=== PATIENT | female | born 1990 | race Caucasian/White ===

== ENCOUNTER 2018-02-10 20:00 | Inpatient (IN) | payer BC, SELFPAY ==
[2018-02-10 20:45] LABS: Hemoglobin 14.4 g/dL (12.0-16.0); Mean Corpuscular HGB CONC 32.6 g/dL (32.0-36.0); Mean Corpuscular Hemoglobin 34.3 pg (27.0-31.0); Mean Platelet Volume 8.9 fL (7.4-10.4); Platelet Count 525 thou/uL (130-400); RBC Distribution Width 13.8 % (11.5-14.5); Red Blood Cell (RBC) Count 4.19 mill/uL (4.20-5.40); White Blood Cell (WBC) Count 17.7 thou/uL (4.8-10.8)
[2018-02-10 20:58] LABS: Band 2 % (5-11); Eosinophils 2 % (0-10); Lymphocytes 8 % (21-51); MDiff Complete? YES; Monocytes 9 % (0-10); Neutrophil 79 % (42-75); PLT Morphology Comment Appears Increased
[2018-02-10 21:00] LABS: ALT (SGPT) 184 U/L (8-55); AST (SGOT) 522 U/L (5-34); Albumin 4.2 g/dL (3.5-5.0); Alkaline Phosphatase 253 U/L (40-150); Anion Gap 18 mmol/L (10-20); BUN (Urea Nitrogen) 7 mg/dL (7.0-18.7); Bilirubin, Total 0.9 mg/dL (0.2-1.2); CRP (Inflammatory) 2.77 mg/dL (= or < 0.5); Calc. Creatinine Clearance 0 mL/min (70-130); Calcium 10.2 mg/dL (7.8-10.44); Carbon Dioxide 20 mmol/L (22-29); Chloride 103 mmol/L (98-107); Estimated GFR-MDRD Greater than 90; Globulin 4.5 g/dL (2.4-3.5); Glucose 99 mg/dL (70-105); Potassium 4.6 mmol/L (3.5-5.1); Protein, Total 8.7 g/dL (6.0-8.3); Sodium 136 mmol/L (136-145)
--- NOTE | 2018-02-10 21:31 | CT ---
CT BRAIN WITHOUT CONTRAST 02/10/18 HISTORY: Leg weakness. COMPARISON: None. FINDINGS: No hemorrhage. No infarct. No midline shift or mass effect. Ventricular size, extra-axial CSF spaces are normal. Globes are normal. Calvarium is intact. Paranasal sinuses and mastoids are clear. IMPRESSION: No acute intracranial abnormality. POS: [facility]
[2018-02-10] MEDS ORDERED: Lorazepam 2 MG/ML VIAL ONE (21:58)
--- NOTE | 2018-02-10 22:05 | ULT ---
ULTRASOUND GALLBLADDER RIGHT UPPER QUADRANT: 02/10/18 HISTORY: Elevated LFTs. COMPARISON: None. FINDINGS: Pancreas is not well seen. Abnormal increased hepatic echotexture. Liver is enlarged. Portal vein is patent. Antegrade flow. Gallbladder is normal. Common bile duct is normal. Right kidney is normal. IMPRESSION: Enlarged heterogeneous liver suggesting steatosis. POS: [facility]
[2018-02-10 22:43] LABS: Bilirubin Negative (Negative); Blood, Urine Small (Negative); Clarity CLEAR (Clear); Glucose, Urine (Dipstick) Negative (Negative); Leukocyte Large (Negative); Nitrite Negative (Negative); Protein, Urine (Dipstick) Negative (Neg-Trace); Specific Gravity, Urine 1.012 (1.002-1.036); pH, Urine 6.5 (5.0-9.0)
[2018-02-10 22:45] LABS: Bacteria/HPF None Seen HPF (None Seen); Hyaline Casts/LPF 4-6 HYALINE CAST LPF (0-3 Hyaline); Pathc Cast-AUWi Flag 0.43 (0-2.49); Squamous Epithelial 0-3 HPF (0-3); WBC/HPF 21-50 HPF (0-3)
[2018-02-10 22:49] LABS: Amphetamine Not Detected (NotDetected); Barbiturates Screen Not Detected (NotDetected); Benzodiazepine Screen Not Detected (NotDetected); Cocaine Metabolite Screen Not Detected (NotDetected); Medtox Control Line Valid? VALID (VALID); Medtox Reader # READER 4; Methadone Not Detected (NotDetected); Methamphetamine Not Detected (NotDetected); Opiate Screen Not Detected (NotDetected); Oxycodone Screen Not Detected (NotDetected); Phencyclidine (PCP) Not Detected (NotDetected); THC/Cannabinoid Screen Not Detected (NotDetected); Tricyclic Screen Not Detected (NotDetected)
[2018-02-11] LABS: HBCM Index 0.09 S/CO (0-0.79); HBSAg Index 0.15 S/CO (0-0.99); Hep A IgM AB Non-Reactive (NonReactive); Hep A IgM S/CO 0.13 S/CO (0-0.79); Hep B Surf Ag Non-Reactive S/CO (NonReactive); Hep C IgG Ab Non-Reactive (NonReactive); Hep C Index 0.14 S/CO (0-0.79); Hepatitis B Core IGM Abs Non-Reactive (NonReactive)
[2018-02-11 01:40] VITALS: BMI 31.8
[2018-02-11] MEDS ORDERED: Labetalol HCl 100 MG/20 ML VIAL SLOW IVP SCH (01:45)
[2018-02-11] MEDS ORDERED: Multivitamins, Adult 10 ML, Folic Acid 1 MG, Thiamine HCl 100 MG in Dextrose 5 %-0.45 %... IV SCH (03:00)
[2018-02-11 03:01] LABS: #Basophils 0.1 thou/uL (0.0-0.2); #Eosinphils 0.1 thou/uL (0.0-0.7); #Lymphocytes 1.9 thou/uL (1.20-3.40); #Monocytes 0.9 thou/uL (0.11-0.59); #Neutrophils 13.4 thou/uL (1.40-6.50); %Basophils 0.6 % (0.0-1.0); %Eosinophils 0.6 % (0.0-10.0); %Lymphocytes 11.6 % (21.0-51.0); %Monocytes 5.5 % (0.0-10.0); %Neutrophils 81.7 % (42.0-75.0); Hemoglobin 13.5 g/dL (12.0-16.0); Mean Corpuscular HGB CONC 33.1 g/dL (32.0-36.0); Mean Corpuscular Hemoglobin 35.3 pg (27.0-31.0); Mean Platelet Volume 8.9 fL (7.4-10.4); Platelet Count 486 thou/uL (130-400); Red Blood Cell (RBC) Count 3.81 mill/uL (4.20-5.40); White Blood Cell (WBC) Count 16.4 thou/uL (4.8-10.8)
[2018-02-11 03:42] LABS: ALT (SGPT) 153 U/L (8-55); AST (SGOT) 389 U/L (5-34); Alkaline Phosphatase 232 U/L (40-150); Anion Gap 15 mmol/L (10-20); BUN (Urea Nitrogen) 7 mg/dL (7.0-18.7); Bilirubin, Total 0.7 mg/dL (0.2-1.2); Calc. Creatinine Clearance 192 mL/min (70-130); Calcium 9.8 mg/dL (7.8-10.44); Carbon Dioxide 22 mmol/L (22-29); Chloride 104 mmol/L (98-107); Estimated GFR-MDRD Greater than 90; Globulin 3.6 g/dL (2.4-3.5); Glucose 102 mg/dL (70-105); Potassium 3.9 mmol/L (3.5-5.1); Protein, Total 7.6 g/dL (6.0-8.3); Sodium 137 mmol/L (136-145)
[2018-02-11] MEDS: Lorazepam 2 MG/ML VIAL SLOW IVP PRN ×3 (04:38→21:21)
[2018-02-11 05:03] LABS: Folate (Folic Acid) 10.7 ng/mL (7.0-31.4)
--- NOTE | 2018-02-11 05:38 | HP ---
PRIMARY CARE PHYSICIAN: None. PRESENTING COMPLAINT: "My lower legs are weak." HISTORY OF PRESENT ILLNESS: Ms. Judy Estrada is a 27-year-old female who has a past medical history of alcohol abuse and whose last drink was about a week ago, she presents to the emergency room with complaints of lower extremity weakness. The patient reports she had a stomach ache about 1 week ago and some weakness in her legs. She was seen by a physician and placed on some medications and sent home. She did not have any other symptoms then however, she reports that she has had more difficulty in walking and has had falls lately , associated with progressively weakening of her legs. She also reports numbness and tingling in both legs. There is no history of fevers or chills. She reports that her last drink was last Monday. She also said that she has had a very stressful few months and has been drinking "a lot" for the past couple of months. PAST MEDICAL HISTORY: Alcohol abuse. PAST SURGICAL HISTORY: Tonsillectomy, adenoidectomy. FAMILY HISTORY: Reviewed and noncontributory. SOCIAL HISTORY: She does not smoke cigarettes, but drinks alcohol regularly. CODE STATUS: FULL CODE. HOME MEDICATIONS: Ibuprofen 600 mg t.i.d. dicyclomine 10 mg t.i.d. ALLERGIES: No known drug allergies. REVIEW OF SYSTEMS: All systems reviewed and negative except as stated in HPI. PHYSICAL EXAMINATION: VITAL SIGNS: Blood pressure of patient is tachycardic, systolic blood pressures in the 160s. Other vital signs are within normal limits. She is afebrile and is breathing comfortably. GENERAL: Not in acute distress. She is lying comfortably in bed. HEENT: Normocephalic, atraumatic. Not pale, anicteric. Moist mucous membranes. PERRLA, EOMI. NECK: Supple, full range of movement. RESPIRATORY: Vesicular breath sounds bilaterally. No wheezes, rales or rhonchi. CARDIOVASCULAR: Tachycardic rate, regular rhythm. S1, S2 only. No murmurs, rubs or gallops. ABDOMEN: Soft, nontender, nondistended, no organomegaly. Bowel sounds normoactive. NEUROLOGIC: Alert and well oriented to time, place and person. Strength 5/5 in all extremities. Tone normal, ? hyperreflexia. MUSCULOSKELETAL: No edema. SKIN: Warm, dry, well-perfused. No rashes or lesions. PSYCHIATRIC: Normal mood and affect. LABORATORY DATA: Leukocytosis of 17,700 with hemoglobin normal, but high macrocytosis. Serum chemistry within normal limits except for ALT/ALT elevation with AST 522 and ALT 184, alkaline phosphatase 253. Urine toxicology was negative. Urinalysis showed large leukocyte esterase, increased wbc, but no bacteria. Hepatitis screening was negative. IMAGING: Brain CT showed no acute intracranial abnormalities. Abdominal ultrasound showed hepatic steatosis with enlarged heterogenous liver. ASSESSMENT AND PLAN: 1. Bilateral lower extremity weakness. Patient has a history of chronic alcohol abuse and this could be from vitamin B12 deficiency. However, there is concern for possible Guillain-[place] as she reports ascending weakness and has had a recent abdominal infection. CT abdomen negative in the emergency room. We will obtain vitamin B12/folate level, monitor on telemetry. MRI has also been ordered by ER physician. She would also require a CSF analysis and if GB, will need IVIG or plasma exchange. 2. Elevated blood pressure without diagnosis of hypertension: This could be due to early symptoms of alcohol withdrawal. We will place patient on banana bag daily, thiamine, and folate, as well as IV lorazepam p.r.n. for withdrawal symptoms. It is unlikely she has any infectious process going on. However, I will obtain cultures, especially since she has leukocytosis. 3. History of chronic alcohol abuse: Patient reports her last drink was a week ago. We will monitor closely for withdrawal symptoms in the hospital and relocation counselor on cessation. 4. Code status: FULL CODE. 5. Deep venous thrombosis prophylaxis: Unnecessary as the patient is young and has very, very little risk for DVTs. Neurology consult also please. MTDD
[2018-02-11] MEDS: Dicyclomine 10 MG CAP PO SCH ×3 (09:10→21:24)
[2018-02-11] MEDS: Folic Acid 1 MG TAB PO SCH (09:10)
[2018-02-11] MEDS ORDERED: Gadobenate Dimeglumine 529 MG/1 ML (20ML VIAL) ONE (09:50)
--- NOTE | 2018-02-11 10:37 | PDOC.PN ---
- Subjective Encounter Start Date: 02/11/18 (f/u weakness) Encounter Start Time: 10:35 Subjective: Pt denies any new sx, is concerned about need for LP - Dr Almaguer d/ w her -: denies any pain - Objective Vital Signs & Weight: Vital Signs (12 hours) Temp Pulse Resp BP BP Pulse Ox 02/11/18 08:09 98 F 98 16 173/110 H 97 02/11/18 07:45 98 F 98 16 02/11/18 04:00 98.8 F 95 17 95 02/11/18 01:58 102 H 176/108 H 02/11/18 01:10 99.3 F 102 H 18 176/108 H 100 Weight Weight 203 lb Result Diagrams: 02/11/18 02:54 02/11/18 02:54 EKG Reviewed by me: Yes (tele - sinus 90-100's) Phys Exam - Physical Examination Constitutional: NAD Respiratory: no wheezing, no rales, no rhonchi, clear to auscultation bilateral Cardiovascular: RRR, no significant murmur Gastrointestinal: soft, non-tender, no distention, positive bowel sounds Musculoskeletal: no edema deferred - slowed movement of LE with changing positions Psychiatric: normal affect Skin: no rash Dx/Plan (1) Weakness Code(s): R53.1 - WEAKNESS Status: Acute (2) UTI (urinary tract infection) Status: Acute (3) Leukocytosis Code(s): D72.829 - ELEVATED WHITE BLOOD CELL COUNT, UNSPECIFIED Status: Acute (4) HTN (hypertension) Code(s): I10 - ESSENTIAL (PRIMARY) HYPERTENSION Status: Chronic Qualifiers: Hypertension type: unspecified Qualified Code(s): I10 - Essential (primary ) hypertension (5) Elevated LFTs Code(s): R79.89 - OTHER SPECIFIED ABNORMAL FINDINGS OF BLOOD CHEMISTRY Status : Acute - Plan * Neuro consult - plan for LP, MRI and IVIG * * UTI - based on abnormal UA - add urine culture and start Rocephin. Pt denies urine sx, however has a leukocytosis and abnormal UA. * * Elevated bp's - uncertain if related to situation vs new dx of htn vs other undx process - follow and continue prn labetalol * * Elevated lft's - on a banana bag and improved today. Monitor this. US shows steatosis and enlarged liver. * * dvt prophy - lovenox added by Dr. Almaguer * * gi prophy - not indicated * * code status - full * * reviewed plan of care with patient and Mom, no questions or further needs at end of eval. *
[2018-02-11] MEDS: OCTAGAM 10% 60 GM, OCTAGAM 10% 10 GM, OCTAGAM 10% 5 GM in Admixture Fee 1 EACH IVPB SCH (11:57)
--- NOTE | 2018-02-11 11:57 | MRI ---
PRE AND POST CONTRAST ENHANCED MRI IMAGES BRAIN: HISTORY: Weakness, evaluate for Guillain-[place]. FINDINGS: Pre- and [id number] MRI images of brain obtained. No evidence of intracranial masses, hemorrhages, strokes, or contusions seen. No abnormal areas of i ntracranial enhancement seen. There does appear to be some minimal subtle increased signal on the T1 weighted sequences suggesting some possible enhancement involving the course of the right facial nerve. There may be some minimal component in the intracannicula portion as well as the horizontal and descending portions of the righ t facial nerve. IMPRESSION: Possible minimal right facial nerve enhancement. Otherwise, unremarkable noncontrast-enhanced MRI im ages of the brain. POS: [facility]
[2018-02-11] MEDS: cefTRIAXone\\ROCEPHIN 1 GM in Sodium Chloride 0.9% 100 ML IVPB SCH (12:00)
[2018-02-11] MEDS: Acetaminophen 325 MG TAB PO PRN (13:53)
--- NOTE | 2018-02-11 15:13 | CON ---
DATE OF CONSULTATION: 02/11/2018 CONSULTING PHYSICIAN: Hospitalist Service. 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 PLAN: 1. Lumbar puncture for spinal fluid analysis. 2. IVIG 1 gram per kilogram for 3 days. 3. Deep venous thrombosis prophylaxis. 4. Bedside spirometry for negative inspiratory flow measurements. HISTORY OF PRESENT ILLNESS: Ms. Kim is a 27-year-old white female with no significant past histor y. Last week, she had some abdominal pain. This was followed by the development of some tingling in her hands and feet. She started noticing progressive weakness in both of her legs, has gotten very difficult to walk. She came into the emergency room last night for evaluation. Her CT scan of the b rain was unremarkable. Laboratory studies were notable for elevated liver enzymes with a negative he patitis panel. She also had an elevated C-reactive protein. Her symptoms began 6 days ago and have reportedly worsened on a gradual basis. EKG showed a heart rate of 92 in sinus rhythm. PAST MEDICAL HISTORY: Otherwise, negative. ALLERGIES: None reported. SOCIAL HISTORY: No tobacco or illicit drug use. FAMILY HISTORY: Noncontributory. REVIEW OF SYSTEMS: No difficulty with facial numbness, difficulty swallowing, double vision, headach e, confusion or vision loss. PHYSICAL EXAMINATION: GENERAL: She is a somewhat overweight young woman, lying in bed, in no acute distress. VITAL SIGNS: Pulse 92, respirations 20. HEENT: Pupils equal and reactive. Conjunctivae clear. Oropharynx clear. NECK: Supple. No pain with movement. EXTREMITIES: No cyanosis, clubbing or edema. NEUROLOGIC: She is alert and appropriate. Her speech is fluent and clear. Cranial nerves were inta ct. Motor exam showed 4/5 strength involving deltoids and biceps, tricep seen normal. Finger flexio n was 4-/5, hip flexion was 4-, ankle flexion was 4-. Reflexes were absent. Sensation was intact to touch. Gait was not tested. No abnormal movements were seen. SUMMARY: This is a young woman with ascending weakness of the extremities along with paresthesias. Her clinical picture is consistent with an acute neuropathy. We would go ahead and proceed with a sp inal tap and treatment. She may transfer to rehabilitation after her treatment depending on the sign ificance of her weakness.
[2018-02-11] MEDS: Labetalol HCl 100 MG/20 ML VIAL SLOW IVP PRN (21:41)
[2018-02-12] MEDS: Lorazepam 2 MG/ML VIAL SLOW IVP PRN ×2 (02:43→08:54)
[2018-02-12 04:27] LABS: #Basophils 0.1 thou/uL (0.0-0.2); #Eosinphils 0.2 thou/uL (0.0-0.7); #Lymphocytes 1.6 thou/uL (1.20-3.40); #Neutrophils 10.7 thou/uL (1.40-6.50); %Basophils 0.5 % (0.0-1.0); %Eosinophils 1.3 % (0.0-10.0); %Lymphocytes 11.5 % (21.0-51.0); %Monocytes 7.3 % (0.0-10.0); %Neutrophils 79.4 % (42.0-75.0); Hemoglobin 13.7 g/dL (12.0-16.0); Mean Corpuscular HGB CONC 33.3 g/dL (32.0-36.0); Mean Corpuscular Hemoglobin 35.2 pg (27.0-31.0); Mean Platelet Volume 9.2 fL (7.4-10.4); Platelet Count 447 thou/uL (130-400); RBC Distribution Width 13.9 % (11.5-14.5); White Blood Cell (WBC) Count 13.5 thou/uL (4.8-10.8)
[2018-02-12 04:36] LABS: ALT (SGPT) 135 U/L (8-55); AST (SGOT) 329 U/L (5-34); Albumin 3.7 g/dL (3.5-5.0); Alkaline Phosphatase 223 U/L (40-150); Anion Gap 15 mmol/L (10-20); BUN (Urea Nitrogen) 4 mg/dL (7.0-18.7); Bilirubin, Total 0.6 mg/dL (0.2-1.2); Calc. Creatinine Clearance 192 mL/min (70-130); Calcium 9.7 mg/dL (7.8-10.44); Carbon Dioxide 21 mmol/L (22-29); Chloride 102 mmol/L (98-107); Estimated GFR-MDRD Greater than 90; Globulin 5.6 g/dL (2.4-3.5); Glucose 94 mg/dL (70-105); Protein, Total 9.3 g/dL (6.0-8.3); Sodium 134 mmol/L (136-145)
[2018-02-12] MEDS: Dicyclomine 10 MG CAP PO SCH ×3 (08:58→20:35)
[2018-02-12] MEDS ORDERED: Enoxaparin Sodium 30 MG/0.3 ML SYRINGE SC SCH (09:00)
--- NOTE | 2018-02-12 10:15 | PDOC.PN ---
- Subjective Encounter Start Date: 02/12/18 Encounter Start Time: 10:13 Patient seen after admission for ascending lower extremity paresis w concerns for Gullian [place] Syndrome. MRI obtained and LP scheduled for today. Has been started on Octagam. - Objective MAR Reviewed: Yes Vital Signs & Weight: Vital Signs (12 hours) Temp Pulse Resp BP BP Pulse Ox 02/12/18 07:32 98.5 F 109 H 16 163/111 H 96 02/12/18 02:45 98.3 F 120 H 18 158/108 H 158/108 H 98 02/12/18 00:00 164/108 H 02/11/18 23:00 98.3 F 86 18 164/108 H 98 Weight Weight 203 lb I&O: 02/11/18 02/12/18 02/13/18 06:59 06:59 06:59 Intake Total 3220 Output Total 4200 Balance -980 Result Diagrams: 02/12/18 03:59 02/12/18 03:59 Phys Exam - Physical Examination Constitutional: NAD HEENT: PERRLA, moist MMs, oral pharynx no lesions Neck: supple, full ROM Respiratory: no wheezing, no rales, no rhonchi, clear to auscultation bilateral Cardiovascular: RRR, no significant murmur, no rub Gastrointestinal: soft, non-tender, no distention, positive bowel sounds Musculoskeletal: no edema, pulses present Psychiatric: normal affect, A&O x 3 Skin: no rash, normal turgor Dx/Plan (1) Weakness Code(s): R53.1 - WEAKNESS Status: Acute Comment: likely 2/2 Gullian BArre. MRI, CT brain done. LP results pending. has been started on IVIG. (2) Alcohol abuse Code(s): F10.10 - ALCOHOL ABUSE, UNCOMPLICATED Status: Chronic (3) Elevated LFTs Code(s): R79.89 - OTHER SPECIFIED ABNORMAL FINDINGS OF BLOOD CHEMISTRY Status : Acute (4) UTI (urinary tract infection) Status: Acute Qualifiers: Urinary tract infection type: acute cystitis Hematuria presence: without hematuria Qualified Code(s): N30.00 - Acute cystitis without hematuria (5) HTN (hypertension) Code(s): I10 - ESSENTIAL (PRIMARY) HYPERTENSION Status: Chronic Qualifiers: Hypertension type: unspecified Qualified Code(s): I10 - Essential (primary ) hypertension - Plan cont current plan of care, plan discussed w/ family, PT/OT, psychiatric social worker supervisor, incentive spirometry, out of bed/ambulate, DVT proph w/lovenox LP scheduled for today. Continue IV Octagam. Will need rehab placement once she has completed treatment. Review of Systems - Medications/Allergies Allergies/Adverse Reactions: Allergies Allergy/AdvReac Type Severity Reaction Status Date / Time No Known Drug Allergies Allergy Verified 02/11/18 01:35 Medications: Current Medications Acetaminophen (Tylenol) 650 mg PO Q4H PRN PRN Reason: Headache/Fever or Pain Last Admin: 02/11/18 13:53 Dose: 650 mg Dicyclomine HCl (Bentyl) 10 mg PO TID [facility] Last Admin: 02/12/18 08:58 Dose: Not Given Enoxaparin Sodium (Lovenox) 30 mg SC 2100 [facility] Folic Acid (Folvite) 1 mg PO DAILY [facility] Last Admin: 02/11/18 09:10 Dose: 1 mg Immune Globulin 60 gm/ Immune Globulin 10 gm/ Immune Globulin 5 gm/ Miscellaneous Medication 750 mls @ 0 mls/hr IVPB Q24HR [facility]UL[facility] PRN Reason: As Directed Stop: 02/13/18 12:01 Last Admin: 02/11/18 11:57 Dose: 750 mls Ceftriaxone Sodium 1 gm/ (Sodium Chloride) 100 mls @ 200 mls/hr IVPB Q24HR [facility] Last Admin: 02/11/18 12:00 Dose: 100 mls Labetalol HCl (Normodyne) 10 mg SLOW IVP Q4H PRN PRN Reason: SBP Greater Than 180 Last Admin: 02/11/18 21:41 Dose: 2 ml Lorazepam (Ativan) 1 mg SLOW IVP Q4H PRN PRN Reason: Anxiety/Agitation Last Admin: 02/12/18 08:54 Dose: 1 mg Sodium Chloride (Flush - Normal Saline) 10 ml IVF Q12HR [facility] Last Admin: 02/11/18 21:23 Dose: 10 ml Sodium Chloride (Flush - Normal Saline) 10 ml IVF PRN PRN PRN Reason: Saline Flush Thiamine HCl (Thiamine) 100 mg PO DAILY [facility] Last Admin: 02/11/18 09:10 Dose: 100 mg
[2018-02-12 10:22] LABS: CSF Source CSF; CSF, Glucose 60 mg/dl (40-70); CSF, Protein 38 mg/dL (15-40); Clarity Clear (Clear); RBC Count - Manual 0 /cumm (None Seen); Tube # 4; WBC/NonHematics Count - Manual 0 /cumm (0-5)
[2018-02-12] MEDS ORDERED: Amlodipine 5 MG TAB PO SCH (10:30)
[2018-02-12] MEDS: Folic Acid 1 MG TAB PO SCH (10:44)
[2018-02-12] MEDS: cefTRIAXone\\ROCEPHIN 1 GM in Sodium Chloride 0.9% 100 ML IVPB SCH (10:47)
--- NOTE | 2018-02-12 11:51 | RAD ---
LUMBAR PUNCTURE WITH FLUOROSCOPIC GUIDANCE: Date: 02-12-18 History: Bilateral lower extremity weakness, possible Guillain [place]. FINDINGS: Informed consent was obtained prior to the procedure. [employer] frontal and lateral imaging of the lumbar spine demonstrates five lumbar type vertebral bodies with intact pedicles on frontal imaging. Verteb ral body height and alignment appears within normal limits. The patient was placed on the fluoroscopic table in the oblique prone position and skin overlying the lower lumbar spine was prepped and draped in normal sterile fashion. With intermittent fluoroscopic guidance, a 22 gauge spinal needle was advanced into the thecal sac at the L3-4 level and removal of the stylet yields clear cerebrospinal fluid. Approximately 8-9 cc was obtained and sent to the laboratory for assessment. Opening pressure is approximately 12 cm of water. IMPRESSION: Successful lumbar puncture as described above. POS: [facility]
[2018-02-12] MEDS: OCTAGAM 10% 60 GM, OCTAGAM 10% 10 GM, OCTAGAM 10% 5 GM in Admixture Fee 1 EACH IVPB SCH (12:51)
[2018-02-12] MEDS: Acetaminophen 325 MG TAB PO PRN (13:14)
[2018-02-12] MEDS ORDERED: cloNIDine 0.1 MG TAB PO SCH (13:45)
[2018-02-12] MEDS ORDERED: Sodium Chloride 0.9% 1,000 ML IV SCH (14:30)
[2018-02-12] MEDS: Enoxaparin Sodium 30 MG/0.3 ML SYRINGE SC SCH (20:34)
[2018-02-12] MEDS: cloNIDine 0.1 MG TAB PO SCH (20:34)
[2018-02-13 08:12] LABS: Hemoglobin 13.2 g/dL (12.0-16.0); Mean Corpuscular HGB CONC 33.6 g/dL (32.0-36.0); Mean Corpuscular Hemoglobin 35.4 pg (27.0-31.0); Mean Platelet Volume 9.1 fL (7.4-10.4); Platelet Count 466 thou/uL (130-400); RBC Distribution Width 13.8 % (11.5-14.5); Red Blood Cell (RBC) Count 3.74 mill/uL (4.20-5.40); White Blood Cell (WBC) Count 8.9 thou/uL (4.8-10.8)
[2018-02-13] MEDS: cloNIDine 0.1 MG TAB PO SCH ×2 (08:15→21:23)
[2018-02-13] MEDS: Dicyclomine 10 MG CAP PO SCH ×3 (08:16→21:51)
[2018-02-13] MEDS: Amlodipine 5 MG TAB PO SCH (08:17)
[2018-02-13] MEDS: Folic Acid 1 MG TAB PO SCH (08:18)
[2018-02-13] MEDS: Lorazepam 2 MG/ML VIAL SLOW IVP PRN ×3 (08:21→23:52)
[2018-02-13 08:41] LABS: Band 22 % (5-11); Eosinophils 3 % (0-10); Lymphocytes 4 % (21-51); MDiff Complete? YES; Macrocytosis SLIGHT = 6-15 cells (100X) (0-5/hpf); Monocytes 13 % (0-10); Neutrophil 53 % (42-75); PLT Morphology Comment Appears Increased; Polychromasia SLIGHT = 2-3 cells (100X) (0-2/hpf); Reactive Lymphocytes 2 % (0-10); Rouleaux Formation SLIGHT = 1-5 cells (100X) (None Seen); Stomatocytes MODERATE= 6-15 cells (100X) (0-1/hpf)
--- NOTE | 2018-02-13 09:01 | PDOC.PN ---
- Subjective Encounter Start Date: 02/13/18 Encounter Start Time: 09:05 patient seen and examined. Admitted for bilateral progressing lower extremity weakness, withhigh suspicion for Gullian [place]. Doing better now with physical therapy and no signs of progressing disease. Incentive spirometer by bedside. No acute events overnight. No complaints. - Objective Vital Signs & Weight: Vital Signs (12 hours) Temp Pulse Resp BP BP BP Pulse Ox 02/13/18 07:41 99.2 F 106 H 18 142/101 H 96 02/13/18 04:09 144/98 H 02/13/18 04:00 99.7 F H 110 H 16 144/98 H 96 02/13/18 00:00 97.4 F L 115 H 18 169/96 H 169/96 H 95 02/12/18 21:58 116 H 166/99 H Weight Weight 203 lb I&O: 02/12/18 02/13/18 02/14/18 06:59 06:59 06:59 Intake Total 3220 Output Total 4200 Balance -980 Result Diagrams: 02/13/18 07:52 02/12/18 03:59 Phys Exam - Physical Examination Constitutional: NAD HEENT: moist MMs, sclera anicteric, oral pharynx no lesions Neck: supple, full ROM Respiratory: no wheezing, no rales, no rhonchi, clear to auscultation bilateral Cardiovascular: RRR, no significant murmur, no rub Gastrointestinal: soft, non-tender, no distention, positive bowel sounds Musculoskeletal: no edema, pulses present Neurological: non-focal Psychiatric: normal affect, A&O x 3 Skin: no rash, normal turgor Dx/Plan (1) Weakness Code(s): R53.1 - WEAKNESS Status: Acute Comment: High suspicion for Gullian [place]. MRI, CT brain done. LP did not have elevated protein.as been started on IVIG. (2) Alcohol abuse Code(s): F10.10 - ALCOHOL ABUSE, UNCOMPLICATED Status: Chronic (3) Elevated LFTs Code(s): R79.89 - OTHER SPECIFIED ABNORMAL FINDINGS OF BLOOD CHEMISTRY Status : Chronic (4) UTI (urinary tract infection) Status: Acute Qualifiers: Urinary tract infection type: acute cystitis Hematuria presence: without hematuria Qualified Code(s): N30.00 - Acute cystitis without hematuria (5) HTN (hypertension) Code(s): I10 - ESSENTIAL (PRIMARY) HYPERTENSION Status: Chronic Qualifiers: Hypertension type: unspecified Qualified Code(s): I10 - Essential (primary ) hypertension - Plan cont current plan of care, plan discussed w/ family, PT/OT, director social service, out of bed/ambulate Continue IVIG Continue PT/OT Home w physical therapy after completing IVIG treatment. Review of Systems - Medications/Allergies Allergies/Adverse Reactions: Allergies Allergy/AdvReac Type Severity Reaction Status Date / Time No Known Drug Allergies Allergy Verified 02/11/18 01:35 Medications: Current Medications Acetaminophen (Tylenol) 650 mg PO Q4H PRN PRN Reason: Headache/Fever or Pain Last Admin: 02/12/18 13:14 Dose: 650 mg Amlodipine Besylate (Norvasc) 5 mg PO DAILY [facility] Last Admin: 02/13/18 08:17 Dose: 5 mg Clonidine (Catapres) 0.1 mg PO BID [facility] Last Admin: 02/13/18 08:15 Dose: 0.1 mg Dicyclomine HCl (Bentyl) 10 mg PO TID [facility] Last Admin: 02/13/18 08:16 Dose: Not Given Enoxaparin Sodium (Lovenox) 30 mg SC 2100 [facility] Last Admin: 02/12/18 20:34 Dose: 30 mg Folic Acid (Folvite) 1 mg PO DAILY [facility] Last Admin: 02/13/18 08:18 Dose: 1 mg Immune Globulin 60 gm/ Immune Globulin 10 gm/ Immune Globulin 5 gm/ Miscellaneous Medication 750 mls @ 0 mls/hr IVPB Q24HR [facility] PRN Reason: As Directed Stop: 02/13/18 12:01 Last Admin: 02/12/18 12:51 Dose: 750 mls Ceftriaxone Sodium 1 gm/ (Sodium Chloride) 100 mls @ 200 mls/hr IVPB Q24HR [facility] Last Admin: 02/12/18 10:47 Dose: 100 mls Labetalol HCl (Normodyne) 10 mg SLOW IVP Q4H PRN PRN Reason: SBP Greater Than 180 Last Admin: 02/11/18 21:41 Dose: 2 ml Lorazepam (Ativan) 1 mg SLOW IVP Q4H PRN PRN Reason: Anxiety/Agitation Last Admin: 02/13/18 08:21 Dose: 1 mg Morphine Sulfate (Morphine) 2 mg SLOW IVP Q4H PRN PRN Reason: Severe Pain (7-10) Last Admin: 02/13/18 07:06 Dose: 2 mg Sodium Chloride (Flush - Normal Saline) 10 ml IVF Q12HR [facility] Last Admin: 02/13/18 08:19 Dose: 10 ml Sodium Chloride (Flush - Normal Saline) 10 ml IVF PRN PRN PRN Reason: Saline Flush Thiamine HCl (Thiamine) 100 mg PO DAILY [facility] Last Admin: 02/13/18 08:17 Dose: 100 mg
[2018-02-13] MEDS: cefTRIAXone\\ROCEPHIN 1 GM in Sodium Chloride 0.9% 100 ML IVPB SCH (10:29)
[2018-02-13 10:37] LABS: Hemoglobin A1c 5.5 % (4.0-6.0)
[2018-02-13] MEDS: OCTAGAM 10% 60 GM, OCTAGAM 10% 10 GM, OCTAGAM 10% 5 GM in Admixture Fee 1 EACH IVPB SCH (14:06)
[2018-02-13] MEDS: Labetalol HCl 100 MG/20 ML VIAL SLOW IVP PRN (18:01)
[2018-02-13] MEDS: Enoxaparin Sodium 30 MG/0.3 ML SYRINGE SC SCH (21:24)
[2018-02-14] MEDS: Lorazepam 2 MG/ML VIAL SLOW IVP PRN ×2 (05:31→23:57)
[2018-02-14 05:52] LABS: Hemoglobin 13.1 g/dL (12.0-16.0); Mean Corpuscular HGB CONC 32.5 g/dL (32.0-36.0); Mean Corpuscular Hemoglobin 34.4 pg (27.0-31.0); Mean Platelet Volume 9.3 fL (7.4-10.4); Platelet Count 456 thou/uL (130-400); RBC Distribution Width 13.9 % (11.5-14.5); White Blood Cell (WBC) Count 7.7 thou/uL (4.8-10.8)
[2018-02-14 06:07] LABS: Anion Gap 12 mmol/L (10-20); BUN (Urea Nitrogen) 6 mg/dL (7.0-18.7); Calc. Creatinine Clearance 185 mL/min (70-130); Calcium 9.9 mg/dL (7.8-10.44); Carbon Dioxide 22 mmol/L (22-29); Chloride 100 mmol/L (98-107); Estimated GFR-MDRD Greater than 90; Glucose 95 mg/dL (70-105); Potassium 4.3 mmol/L (3.5-5.1); Sodium 130 mmol/L (136-145)
[2018-02-14] MEDS ORDERED: Metoprolol Tartrate 25 MG TAB PO SCH ×4 (09:00→21:00)
[2018-02-14] MEDS: Amlodipine 5 MG TAB PO SCH (09:36)
[2018-02-14] MEDS: Dicyclomine 10 MG CAP PO SCH ×3 (09:37→21:51)
[2018-02-14] MEDS: Folic Acid 1 MG TAB PO SCH (09:37)
[2018-02-14] MEDS: cefTRIAXone\\ROCEPHIN 1 GM in Sodium Chloride 0.9% 100 ML IVPB SCH (09:41)
[2018-02-14] MEDS: Acetaminophen 325 MG TAB PO PRN ×2 (09:41→16:10)
[2018-02-14] MEDS ORDERED: Amlodipine 5 MG TAB PO SCH ×2 (10:21→10:30)
--- NOTE | 2018-02-14 10:21 | PDOC.PN ---
- Subjective Encounter Start Date: 02/14/18 Encounter Start Time: 10:23 Patient seen and examined for lower extremity weakness likely 2/2 Gullian [place] Syndrome. Doing much better after IVIG and physical therapy. No complaints today. No acute events overnight. - Objective MAR Reviewed: Yes Vital Signs & Weight: Vital Signs (12 hours) Temp Pulse Resp BP BP BP Pulse Ox 02/14/18 09:36 170/113 H 02/14/18 08:00 100.2 F H 112 H 17 170/113 H 95 02/14/18 04:09 153/104 H 02/14/18 04:00 99.0 F 108 H 18 153/104 H 94 L 02/14/18 00:09 138/91 H 02/14/18 00:00 98.3 F 108 H 18 138/91 H 94 L Weight Weight 200 lb 12.8 oz I&O: 02/13/18 02/14/18 02/15/18 06:59 06:59 06:59 Intake Total 1527 Balance 1527 Result Diagrams: 02/14/18 05:24 02/14/18 05:24 Phys Exam - Physical Examination Constitutional: NAD HEENT: moist MMs, TM's clear, oral pharynx no lesions Neck: supple, full ROM Respiratory: no wheezing, no rales, no rhonchi, clear to auscultation bilateral Cardiovascular: no significant murmur, no rub tachycardic Gastrointestinal: soft, non-tender, no distention, positive bowel sounds Musculoskeletal: no edema, pulses present Neurological: non-focal, moves all 4 limbs Psychiatric: normal affect, A&O x 3 Dx/Plan (1) HTN (hypertension) Code(s): I10 - ESSENTIAL (PRIMARY) HYPERTENSION Status: Chronic Qualifiers: Hypertension type: essential hypertension Qualified Code(s): I10 - Essential (primary) hypertension Comment: Not at goal. TTE ordered. (2) Weakness Code(s): R53.1 - WEAKNESS Status: Acute Comment: Improving. Likely 2/2 Gullian [place]. MRI, CT brain done. LP did not have elevated protein. Completed IVIG. (3) Alcohol abuse Code(s): F10.10 - ALCOHOL ABUSE, UNCOMPLICATED Status: Chronic (4) Elevated LFTs Code(s): R79.89 - OTHER SPECIFIED ABNORMAL FINDINGS OF BLOOD CHEMISTRY Status : Chronic (5) UTI (urinary tract infection) Status: Acute Qualifiers: Urinary tract infection type: acute cystitis Hematuria presence: without hematuria Qualified Code(s): N30.00 - Acute cystitis without hematuria - Plan cont current plan of care, plan discussed w/ family, continue antibiotics, PT/OT , bilingual social worker, DVT proph w/lovenox f/u TTE, TSH. Continue physical therapy education and development manager working on rehabilitation placement. Review of Systems - Medications/Allergies Allergies/Adverse Reactions: Allergies Allergy/AdvReac Type Severity Reaction Status Date / Time No Known Drug Allergies Allergy Verified 02/11/18 01:35 Medications: Current Medications Acetaminophen (Tylenol) 650 mg PO Q4H PRN PRN Reason: Headache/Fever or Pain Last Admin: 02/14/18 09:41 Dose: 650 mg Amlodipine Besylate (Norvasc) 5 mg PO DAILY [facility] Last Admin: 02/14/18 09:36 Dose: 5 mg Dicyclomine HCl (Bentyl) 10 mg PO TID [facility] Last Admin: 02/14/18 09:37 Dose: 10 mg Enoxaparin Sodium (Lovenox) 30 mg SC 2100 [facility] Last Admin: 02/13/18 21:24 Dose: 30 mg Folic Acid (Folvite) 1 mg PO DAILY [facility] Last Admin: 02/14/18 09:37 Dose: 1 mg Ceftriaxone Sodium 1 gm/ (Sodium Chloride) 100 mls @ 200 mls/hr IVPB Q24HR [facility] Last Admin: 02/14/18 09:41 Dose: 100 mls Labetalol HCl (Normodyne) 10 mg SLOW IVP Q4H PRN PRN Reason: SBP Greater Than 180 Last Admin: 02/13/18 18:01 Dose: 2 ml Lorazepam (Ativan) 1 mg SLOW IVP Q4H PRN PRN Reason: Anxiety/Agitation Last Admin: 02/14/18 05:31 Dose: 1 mg Metoprolol Tartrate (Lopressor) 12.5 mg PO BID [facility] Last Admin: 02/14/18 09:36 Dose: 12.5 mg Morphine Sulfate (Morphine) 2 mg SLOW IVP Q4H PRN PRN Reason: Severe Pain (7-10) Last Admin: 02/13/18 21:24 Dose: 2 mg Sodium Chloride (Flush - Normal Saline) 10 ml IVF Q12HR [facility] Last Admin: 02/14/18 09:37 Dose: 10 ml Sodium Chloride (Flush - Normal Saline) 10 ml IVF PRN PRN PRN Reason: Saline Flush Thiamine HCl (Thiamine) 100 mg PO DAILY [facility] Last Admin: 02/14/18 09:36 Dose: 100 mg
[2018-02-14] MEDS: Enoxaparin Sodium 30 MG/0.3 ML SYRINGE SC SCH (21:50)
[2018-02-15] MEDS: Lorazepam 2 MG/ML VIAL SLOW IVP PRN (06:22)
[2018-02-15] MEDS ORDERED: Metoprolol Tartrate 25 MG TAB PO SCH (06:42)
[2018-02-15] MEDS: Acetaminophen 325 MG TAB PO PRN (08:06)
[2018-02-15] MEDS ORDERED: Metoprolol Tartrate 50 MG TAB PO SCH (09:00)
[2018-02-15] MEDS ORDERED: Amlodipine 10 MG TAB PO SCH (09:00)
[2018-02-15] MEDS: Dicyclomine 10 MG CAP PO SCH (10:03)
[2018-02-15] MEDS: cefTRIAXone\\ROCEPHIN 1 GM in Sodium Chloride 0.9% 100 ML IVPB SCH (10:03)
[2018-02-15] MEDS: Folic Acid 1 MG TAB PO SCH (10:03)
[2018-02-15 13:45] VITALS: BP 140/100; TEMP 99.2
--- NOTE | 2018-02-15 14:58 | DIS ---
DATE OF ADMISSION: 02/11/2018 DATE OF DISCHARGE: 02/15/2018 DISCHARGE DIAGNOSES: Guillain-[place], hypertension, alcohol abuse. HISTORY OF PRESENT ILLNESS/HOSPITAL COURSE: Ms. Sean Kim is a 27-year-old female who has a hi story of chronic alcohol abuse and reported last drink to be about a week before presentation, who ca me to the emergency room with complaints of progressively worsening lower extremity weakness. She dutton d a stomach discomfort about a week before and was diagnosed with a GI illness. She was seen by her physician and started on some antibiotics and sent home; however, she soon after started having numbn ess in her extremities and began ascending. She found it difficult for walk and [facility]. There was no history of fevers or chills. There are no s ick contacts. She reports drinking a lot in the past few months, and takes multiple shots duri ng the course of the night. A suspicion of Guillain-[place] was made as a diagnosis and the patient dutton d a CT head which was negative. She was seen by neurologist who quickly recommended MRI and a lumbar puncture which were both unremarkable and the patient was started on IVIG. She received 3 doses of IVIG. She had an incentive spirometer placed at bedside and she was monitored on telemetry. She beg an physical therapy and improved while in the hospital. Recommendation was made for the patient to eliot hernandez to undergo outpatient physical therapy while in hospital as well. Her blood pressure was mar kedly elevated to the 180 systolic and she was also tachycardic. She was placed on alcohol withdrawa l protocol, but even after the window passed, she continued to be hypertensive and so she was started on amlodipine and metoprolol. TTE done showed no remarkable abnormalities. The patient is discharg ed to home with PT and OT. She was stable and well upon discharge. DISCHARGE MEDICATIONS: Amlodipine 10 mg daily, folic acid 1 mg daily, metoprolol 50 mg twice a day, thiamine 100 mg daily, gabapentin 300 mg twice a day, dicyclomine 10 mg 3 times a day, ibuprofen 200 mg 3 times a day. PHYSICAL EXAMINATION: GENERAL: She was examined on the day of discharge. VITAL SIGNS: Blood pressure 158/108, pulse rate 109, respiratory rate 16, oxygen saturation 97% on r oom air, temperature 99.3 degrees Fahrenheit. GENERAL: Not in acute distress. She is sitting comfortably in bed. HEENT: Normocephalic, atraumatic. Not pale, anicteric. Moist mucous membranes. NECK: Supple, full range of movement. CARDIOVASCULAR: Slightly tachycardic, regular rate and rhythm. No murmurs, rubs or gallops. RESPIRATORY: Vesicular breath sounds bilaterally. No wheezes, rales or rhonchi. ABDOMEN: Soft, nontender, nondistended. Bowel sounds normoactive. EXTREMITIES: No edema. NEUROLOGIC: Alert and well oriented. No focal deficits. SKIN: Warm, dry, well-perfused. No rashes or lesions. PSYCHIATRIC: Normal mood and affect. LABORATORY DATA: WBC 7.7, hemoglobin 13.1, platelet count 456. Sodium 130, potassium 4.3, chloride 100, carbon dioxide 22, BUN 12, creatinine 0.6, glucose 95, calcium 9.9, hemoglobin A1c 5.5. TSH 1.9 4. IMAGING: TTE, MRI brain and brain CT. PROCEDURES: Lumbar puncture with fluoroscopy. CONSULTS: Neurology. CONDITION AT DISCHARGE: Stable and improved. DIET: Low sodium. Care goals to follow up with her primary care within 1 week for blood pressure check and repeat labs. ACTIVITY: To resume as tolerated and directed by PT/OT. Discharge time 65 minutes including chart review and documentation.
== END 2018-02-15 12:41 | disposition home health service (06) | DRG 95 ==
LOC: ERS 20:00 → OBSVTOIN 02-11 00:21 → 2NO 02-11 00:21
PROVIDERS: ADMIT Internal Medicine; ATTEND Internal Medicine
PROC: 00JU3ZZ Inspection of Spinal Canal, Percutaneous Approach (ICD-10-PCS; principal; 2018-02-12)
DX: G61.0 Guillain-Barre syndrome (principal); N39.0 Urinary tract infection, site not specified; Z79.1 Long term (current) use of non-steroidal anti-inflammatories (NSAID); Z79.899 Other long term (current) drug therapy; I10 Essential (primary) hypertension; F10.10 Alcohol abuse, uncomplicated
CPT/HCPCS: 36415; 62270; 70450; 70553; 76705; 80048; 80053; 80074; 80306; 81003; 81015; 82607; 82746; 82945; 83036; 84157; 84443; 85025; 85027; 85652; 86140; 87040; 87086; 87205; 89051; 93306; 96361; 96374; A4216; A9579; G8978-GP-CM; G8979-GP-CK; G8987-GO-CJ; G8988-GO-CH; J0696; J1568; J1650; J2060; J2270; J3411; J7042; J7050

== ENCOUNTER 2018-04-18 10:13 | Outpatient (CLI) | payer OTHER ==
--- NOTE | 2018-04-18 11:52 | ULT ---
RIGHT UPPER QUADRANT ULTRASOUND: DATE: 04/18/18. COMPARISON: None. HISTORY: Elevated liver function tests. TECHNIQUE: Multiplanar, esqueda scale, sonographic imaging of the right upper quadrant obtained. FINDINGS: Imaged pancreas is unremarkable. Distal body and tail are obscured by bowel gas. The hepatic parenchyma is heterogeneous and echogenic, suggesting hepatocellular disease, such as hep atic steatosis. The fire control assistant reports a negative Ballesteros's sign. No gallbladder wall thickening or pericholecystic fluid noted. No gallstones are seen. The common b ile duct measures 3 mm, within normal limits. The right kidney measures 12 cm in craniocaudal dimens ion and demonstrates no evidence for stone, hydronephrosis, or mass. IMPRESSION: Findings suggesting hepatic steatosis. No cholelithiasis, cholecystitis, or biliary dilatation. POS: FRAN
== END 2018-04-18 10:14 | disposition home or self-care (01) ==
LOC: SCSULT 10:13
PROVIDERS: ATTEND Family Medicine
DX: R94.5 Abnormal results of liver function studies (principal)
CPT/HCPCS: 76705

== ENCOUNTER 2020-07-01 17:47 | Inpatient (IN) | payer OTHER ==
[2020-07-01 18:30] LABS: Bacteria/HPF 1+ HPF (None Seen); Bilirubin Negative (Negative); Blood, Urine 3+ (Negative); Clarity Turbid (Clear); Glucose, Urine (Dipstick) Normal (Negative); Ketone, Urine Negative (Negative); Leukocyte 500 Leu/uL (Negative); Nitrite Negative (Negative); Pregnancy Test - Urine (BHCG) Negative (Negative); Pregu Control Background? CLEAR/WHITE (CLR/WHITE); Pregu Control Bar Appear? YES (CONTROL BAR); Protein, Urine (Dipstick) Negative (Neg-Trace); RBC/HPF 0-3 HPF (0-3); Specific Gravity 1.003 (1.002-1.036); Specific Gravity, Urine 1.003 (1.002-1.036); Squamous Epithelial 0-3 HPF (0-3); Urobilinogen Normal mg/dL (Less than 2); pH, Urine 6.5 (5.0-9.0)
[2020-07-01 18:41] LABS: Hemoglobin 12.6 g/dL (12.0-16.0); Red Blood Cell (RBC) Count 3.25 mill/uL (4.20-5.40); White Blood Cell (WBC) Count 13.4 thou/uL (4.8-10.8)
[2020-07-01 18:42] LABS: Platelet Count 423 thou/uL (130-400); RBC Distribution Width 14.4 % (11.5-14.5)
[2020-07-01 19:05] LABS: #Basophils 0.1 thou/uL (0.0-0.2); #Eosinphils 0.1 thou/uL (0.0-0.7); #Lymphocytes 3.1 thou/uL (1.20-3.40); #Monocytes 0.5 thou/uL (0.11-0.59); #Neutrophils 9.6 thou/uL (1.40-6.50); %Basophils 0.8 % (0.0-1.0); %Eosinophils 0.5 % (0.0-10.0); %Lymphocytes 22.9 % (21.0-51.0); %Monocytes 3.9 % (0.0-10.0); %Neutrophils 71.9 % (42.0-75.0); Mean Corpuscular HGB CONC 33.3 g/dL (32.0-36.0); Mean Corpuscular Hemoglobin 38.9 pg (27.0-31.0)
[2020-07-01 19:07] LABS: MDiff Complete? YES; Macrocytosis SLIGHT = 6-15 cells (100X) (0-5/hpf); Platelet Morphology Comment Appears Increased; Polychromasia SLIGHT = 2-3 cells (100X) (0-2/hpf); Target Cells MODERATE= 6-15 cells (100X) (0-1/hpf)
[2020-07-01 21:23] LABS: ALT (SGPT) 87 U/L (8-55); AST (SGOT) 310 U/L (5-34); Albumin 3.8 g/dL (3.5-5.0); Alkaline Phosphatase 198 U/L (40-110); Anion Gap 18 mmol/L (10-20); BUN (Urea Nitrogen) Less than 4 mg/dL (7.0-18.7); Bilirubin, Total 0.8 mg/dL (0.2-1.2); Calc. Creatinine Clearance 0 mL/min (70-130); Calcium 8.9 mg/dL (7.8-10.44); Carbon Dioxide 25 mmol/L (22-29); Chloride 99 mmol/L (98-107); Estimated GFR-MDRD Greater than 90; Globulin 3.6 g/dL (2.4-3.5); Glucose 89 mg/dL (70-105); Potassium 3.6 mmol/L (3.5-5.1); Protein, Total 7.4 g/dL (6.0-8.3); Sodium 138 mmol/L (136-145)
[2020-07-01] MEDS ORDERED: Ondansetron PF 4 MG/2 ML Vial ONE (21:33)
[2020-07-01] MEDS ORDERED: Fentanyl 100 MCG/2 ML VIAL ONE ×2 (21:33→23:54)
[2020-07-01] MEDS ORDERED: methylPREDNISolone Sod Succ 1,000 MG in Sodium Chloride 0.9% 100 ML IVPB SCH (21:45)
[2020-07-01] MEDS ORDERED: Midazolam HCl 2 mg/2 ml Vial ONE (22:01)
[2020-07-01] MEDS ORDERED: cefTRIAXone\\ROCEPHIN 1 GM VIAL ONE (22:01)
[2020-07-01 23:08] LABS: Color Of CSF Supernatant COLORLESS (Colorless); Tube # 2; Unspun CSF Color COLORLESS (Colorless)
[2020-07-01 23:22] LABS: CSF, Glucose 59 mg/dl (40-70); CSF, Protein 30 mg/dL (15-40)
[2020-07-01 23:39] LABS: CSF Source CSF; Clarity Clear (Clear); Tube # 1; Tube # 4
[2020-07-02] MEDS ORDERED: Acetaminophen 325 MG TAB PO PRN (01:02)
[2020-07-02] MEDS ORDERED: Calcium Carbonate 500 MG ChewTAB PO PRN (01:02)
[2020-07-02] MEDS ORDERED: Ondansetron PF 4 MG/2 ML Vial IVP PRN (01:02)
[2020-07-02] MEDS ORDERED: Ondansetron ODT 4 MG TAB PO PRN (01:02)
[2020-07-02] MEDS ORDERED: Acetaminophen 650 MG Suppository PR PRN (01:02)
[2020-07-02] MEDS ORDERED: HYDROcodone/Acetaminophen 5/325 mg Tablet PO PRN (01:02)
--- NOTE | 2020-07-02 01:15 | PDOC.HHP ---
Hospitalist HPI - History of Present Illness parestesia of the legs History of Present Illness: Case of an 30y/o female with pmhx of htn and a hx of guillan barre who presents to hospital with several days of n/t and weakness of lower extremities. States symptoms are similar to when she was diagnosed with Guillian-[place] in 2018. patient refers pains is 8/10 with an ascending pattern and is associated with numbness. reports recently started with pain on her hands bilaterally. denies any fever chills back pain or loss of bowel control. Her neurologist is Dr Almaguer, but was unable to contact him today. ED called neurologist on called who recommended 1g of solumedrol and 0,4mg/kg of ivig Hospitalist ROS - Review of Systems All other systems reviewed; all pertinent +/- noted in HPI/Subj Hospitalist History - Past Surgical History Past Surgical History: reports: Tonsillectomy - Family History Family History: reports: diabetes mellitus Other Family History: epilepsy - Social History Smoking Status: Never smoker Alcohol: reports: Heavy Drugs: reports: none Living Situation: With Family - Exam General Appearance: NAD, awake alert Eye: PERRL, anicteric sclera ENT: normocephalic atraumatic, no oropharyngeal lesions Neck: supple, symmetric, no JVD Heart: RRR, no murmur, no gallops Respiratory: CTAB, no wheezes, no rales, no ronchi Gastrointestinal: soft, non-tender, non-distended Extremities: no cyanosis, no clubbing, no edema Skin: normal turgor, no lesions, no rashes Neurological: cranial nerve grossly intact Musculoskeletal: normal tone Musculoskeletal - other findings: b/l le weakness and decreased reflexes Psychiatric: normal affect, normal behavior, A&O x 3 Hospitalist Results - Labs Result Diagrams: 07/01/20 18:28 07/01/20 20:42 Lab results: WBC 13.4 thou/uL (4.8-10.8) H 07/01/20 18:28 Hgb 12.6 g/dL (12.0-16.0) 07/01/20 18:28 Hct 38.0 % (36.0-47.0) 07/01/20 18:28 MCV 117.0 fL (78.0-98.0) H 07/01/20 18:28 Plt Count 423 thou/uL (130-400) H 07/01/20 18:28 Neutrophils % 71.9 % (42.0-75.0) 07/01/20 18:28 Sodium 138 mmol/L (136-145) 07/01/20 20:42 Potassium 3.6 mmol/L (3.5-5.1) 07/01/20 20:42 Chloride 99 mmol/L (98-107) 07/01/20 20:42 Carbon Dioxide 25 mmol/L (22-29) 07/01/20 20:42 BUN Less than 4 mg/dL (7.0-18.7) L 07/01/20 20:42 Creatinine 0.60 mg/dL (0.6-1.1) 07/01/20 20:42 Glucose 89 mg/dL (70-105) 07/01/20 20:42 Calcium 8.9 mg/dL (7.8-10.44) 07/01/20 20:42 Total Bilirubin 0.8 mg/dL (0.2-1.2) 07/01/20 20:42 AST 310 U/L (5-34) H 07/01/20 20:42 ALT 87 U/L (8-55) H 07/01/20 20:42 Alkaline Phosphatase 198 U/L (40-110) H 07/01/20 20:42 Serum Total Protein 7.4 g/dL (6.0-8.3) 07/01/20 20:42 Albumin 3.8 g/dL (3.5-5.0) 07/01/20 20:42 Urine Ketones Negative mg/dL (Negative) 07/01/20 18:12 Urine Blood 3+ (Negative) A 07/01/20 18:12 Urine Nitrite Negative (Negative) 07/01/20 18:12 Ur Leukocyte Esterase 500 Amber/uL (Negative) A 07/01/20 18:12 Urine RBC 0-3 HPF (0-3) 07/01/20 18:12 Urine WBC 11-20 HPF (0-3) A 07/01/20 18:12 Ur Squamous Epith Cells 0-3 HPF (0-3) 07/01/20 18:12 Urine Bacteria 1+ HPF (None Seen) A 07/01/20 18:12 Hospitalist H&P A/P - Problem (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 Status: Acute (2) UTI (urinary tract infection) Status: Acute Qualifiers: Urinary tract infection type: acute cystitis Hematuria presence: without hematuria Qualified Code(s): N30.00 - Acute cystitis without hematuria (3) Alcohol abuse Code(s): F10.10 - ALCOHOL ABUSE, UNCOMPLICATED Status: Chronic (4) HTN (hypertension) Code(s): I10 - ESSENTIAL (PRIMARY) HYPERTENSION Status: Chronic Qualifiers: Hypertension type: essential hypertension Qualified Code(s): I10 - Essential (primary) hypertension - Plan Plan: case of an 30y/o female with the stated pmxh who present with 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
[2020-07-02 01:23] VITALS: BMI 31.3
[2020-07-02] MEDS ORDERED: Diazepam 5 MG TAB PO PRN (02:32)
[2020-07-02] MEDS ORDERED: Thiamine HCl 200 MG/2 ML VIAL IM SCH (02:45)
[2020-07-02] MEDS ORDERED: Diazepam 5 MG TAB PO SCH (02:45)
[2020-07-02] MEDS ORDERED: HYDROcodone/Acetaminophen 5/325 mg Tablet ONE ×2 (04:03→10:06)
[2020-07-02] MEDS: OCTAGAM IVPB SCH (04:04)
[2020-07-02] MEDS: ADMIXTURE FEE IVPB SCH (04:04)
[2020-07-02] MEDS ORDERED: Diazepam 5 MG TAB ONE (05:31)
[2020-07-02] MEDS: HYDROcodone/Acetaminophen 5/325 mg Tablet PO PRN ×2 (05:57→13:55)
[2020-07-02] MEDS ORDERED: Morphine 4 MG/ML VIAL ONE (06:44)
[2020-07-02] MEDS: Morphine 4 MG/ML VIAL SLOW IVP PRN ×3 (06:47→20:37)
[2020-07-02 06:58] LABS: ALT (SGPT) 82 U/L (8-55); AST (SGOT) 263 U/L (5-34); Albumin 3.4 g/dL (3.5-5.0); Alkaline Phosphatase 187 U/L (40-110); Anion Gap 16 mmol/L (10-20); BUN (Urea Nitrogen) 4 mg/dL (7.0-18.7); Bilirubin, Total 1.1 mg/dL (0.2-1.2); Calc. Creatinine Clearance 171 mL/min (70-130); Calcium 8.6 mg/dL (7.8-10.44); Carbon Dioxide 23 mmol/L (22-29); Chloride 101 mmol/L (98-107); Estimated GFR-MDRD Greater than 90; Globulin 4.2 g/dL (2.4-3.5); Glucose 187 mg/dL (70-105); Potassium 3.8 mmol/L (3.5-5.1); Protein, Total 7.6 g/dL (6.0-8.3); Sodium 136 mmol/L (136-145)
[2020-07-02 07:52] LABS: Band 6 % (5-11); Hemoglobin 11.1 g/dL (12.0-16.0); Lymphocytes 3 % (21-51); MDiff Complete? YES; Macrocytosis MODERATE=16-30 cells (100X) (0-5/hpf); Mean Corpuscular HGB CONC 33.9 g/dL (32.0-36.0); Mean Corpuscular Hemoglobin 39.5 pg (27.0-31.0); Mean Platelet Volume 8.2 fL (7.4-10.4); Monocytes 1 % (0-10); Neutrophil 90 % (42-75); Platelet Count 341 thou/uL (130-400); Platelet Morphology Comment Appears Adequate; RBC Distribution Width 14.5 % (11.5-14.5); Red Blood Cell (RBC) Count 2.81 mill/uL (4.20-5.40); White Blood Cell (WBC) Count 6.3 thou/uL (4.8-10.8)
[2020-07-02] MEDS: Pregabalin 50 MG CAP PO SCH ×3 (08:06→20:39)
[2020-07-02] MEDS ORDERED: Enoxaparin Sodium 40 MG/0.4 ML SYRINGE ONE (09:09)
[2020-07-02] MEDS ORDERED: Amlodipine 5 MG TAB ONE (09:09)
[2020-07-02] MEDS ORDERED: Folic Acid 1 MG TAB ONE (09:09)
[2020-07-02] MEDS ORDERED: Thiamine 100 MG TAB ONE (09:09)
[2020-07-02] MEDS ORDERED: Metoprolol Tartrate 25 MG TAB ONE (09:09)
[2020-07-02] MEDS: Amlodipine 10 MG TAB PO SCH (09:26)
[2020-07-02] MEDS: Metoprolol Tartrate 25 MG TAB PO SCH ×2 (09:28→20:39)
[2020-07-02] MEDS: Folic Acid 1 MG TAB PO SCH (09:28)
[2020-07-02] MEDS: Multivitamin W/ Minerals 1 TAB PO SCH (09:56)
[2020-07-02] MEDS: Enoxaparin Sodium 40 MG/0.4 ML SYRINGE SC SCH (09:57)
[2020-07-02 10:25] LABS: Magnesium 1.5 mg/dL (1.6-2.6); Phosphorus 3.4 mg/dL (2.3-4.7)
[2020-07-02] MEDS ORDERED: Magnesium Sulfate 4 GM in Sodium Chloride 0.9% 250 ML 250 ML IVPB SCH (12:15)
[2020-07-02] MEDS ORDERED: Magnesium 2 GM/50 ML 2 GM in Premix Bag 1 BAG IVPB SCH (12:45)
[2020-07-02 13:00] LABS: SARS-CoV-2 MS2 Positive; SARS-CoV-2 N Gene Negative; SARS-CoV-2 S Gene Negative; SARS-CoV-2 by NAA Not Detected (NotDetected); SARS-CoV-2 orf1ab Negative
--- NOTE | 2020-07-02 14:10 | CON ---
NEUROLOGICAL CONSULTATION DATE OF CONSULTATION: 07/02/2020 REASON FOR CONSULTATION: Ascending paresthesias. HISTORY OF PRESENT ILLNESS: Ms. Judy Estrada is a 30-year-old female with medical history significant for hypertension and Guillain-[place] syndrome in 2018, who is a patient of Dr. Almaguer, presenting with weakness of the lower extremities upto the knees with ascending paresthesias since monday with difficulty walking. Per patient, she had very painful paresthesias in her lower extremities and her legs feel heavy so she was unable to walk properly. The patient denies any shortness of breath, urinary or fecal incontinence or retention. She does complain of tingling and paresthesias in both her hands.. The patient's symptoms are similar when she was diagnosed with Guillain-[place] syndrome in 2018. She denies, fevers, back pain, nausea, vomiting, diarrhea, recent illness or recent exposure to COVID. The patient denies any problem with breathing or swallowing. She was seen in the emergency room where the lumbar puncture was done and she was also started on IVIG 0.4 mg for 4 days. REVIEW OF SYSTEMS: All systems were reviewed and were negative except the pertinent positives and negatives mentioned in the HPI. PAST SURGICAL HISTORY: Tonsillectomy. FAMILY HISTORY: Significant for diabetes and epilepsy. SOCIAL HISTORY: The patient lives with family. Denies smoking, alcohol, or illegal drug use. Allergies: No known drug allergies Home medications: Gabapentin PHYSICAL EXAMINATION: 130/60 88 18 General Appearance: NAD, awake alert Eye: PERRL, anicteric sclera ENT: normocephalic atraumatic, no oropharyngeal lesions Neck: supple, symmetric, no JVD Heart: RRR, no murmur, no gallops Respiratory: CTAB, no wheezes, no rales, no ronchi Gastrointestinal: soft, non-tender, non-distended Extremities: no cyanosis, no clubbing, no edema Skin: normal turgor, no lesions, no rashes Neurological: Mental status, the patient is alert and oriented to person, place, and time. Recent and remote memory, intact. Speech is clear. Motor, muscle tone and bulk are normal. Sensory, decreased sensation to light touch in the lower extremity. In the lower extremity, strength 4/5 bilaterally. Cerebellar, finger-nose testing intact. Gait deferred due to the patient's safety reason. DATA REVIEWED: Significant for hypoglycemia with blood glucose 89. Lab results: WBC 13.4 thou/uL (4.8-10.8) H 07/01/20 18:28 Hgb 12.6 g/dL (12.0-16.0) 07/01/20 18:28 Hct 38.0 % (36.0-47.0) 07/01/20 18: MCV 117.0 fL (78.0-98.0) H 07/01/20 18:28 Plt Count 423 thou/uL (130-400) H 07/01/20 18:28 Neutrophils % 71.9 % (42.0-75.0) 07/01/20 18:28 Sodium 138 mmol/L (136-145) 07/01/20 20:42 Potassium 3.6 mmol/L (3.5-5.1) 07/01/20 20:42 Chloride 99 mmol/L (98-107) 07/01/20 20:42 Carbon Dioxide 25 mmol/L (22-29) 07/01/20 20:42 BUN Less than 4 mg/dL (7.0-18.7) L 07/01/20 20:42 Creatinine 0.60 mg/dL (0.6-1.1) 07/01/20 20:42 Glucose 89 mg/dL (70-105) 07/01/20 20:42 Calcium 8.9 mg/dL (7.8-10.44) 07/01/20 20:42 Total Bilirubin 0.8 mg/dL (0.2-1.2) 07/01/20 20:42 AST 310 U/L (5-34) H 07/01/20 20:42 ALT 87 U/L (8-55) H 07/01/20 20:42 Alkaline Phosphatase 198 U/L (40-110) H 07/01/20 20:42 Serum Total Protein 7.4 g/dL (6.0-8.3) 07/01/20 20:42 Albumin 3.8 g/dL (3.5-5.0) 07/01/20 20:42 Urine Ketones Negative mg/dL (Negative) 07/01/20 18:12 Urine Blood 3+ (Negative) A 07/01/20 18:12 Urine Nitrite Negative (Negative) 07/01/20 18:12 Ur Leukocyte Esterase 500 Amber/uL (Negative) A 07/01/20 18:12 Urine RBC 0-3 HPF (0-3) 07/01/20 18:12 Urine WBC 11-20 HPF (0-3) A 07/01/20 18:12 Ur Squamous Epith Cells 0-3 HPF (0-3) 07/01/20 18:12 Urine Bacteria 1+ HPF (None Seen) A 07/01/20 18:12 ASSESSMENT AND PLAN: (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 Status: Acute (2) UTI (urinary tract infection) Status: Acute Qualifiers: Urinary tract infection type: acute cystitis Hematuria presence: without hematuria Qualified Code(s): N30.00 - Acute cystitis without hematuria (3) Alcohol abuse Code(s): F10.10 - ALCOHOL ABUSE, UNCOMPLICATED Status: Chronic (4) HTN (hypertension) Code(s): I10 - ESSENTIAL (PRIMARY) HYPERTENSION Status: Chronic Qualifiers: Hypertension type: essential hypertension Qualified Code(s): I10 - Essential (primary) hypertension Ms. Judy Estrada is a 30-year-old female with history significant for Guillain-[place] syndrome, alcohol abuse, hypertension, urinary tract infection, presented with an exacerbation of Guillain-[place] syndrome. Continue IVIG 0.4 g/kg for 3 days. . DVT prophylaxis. CIWA protocol. Bedside spirometry for negative inspiratory flow per shift. Neurochecks every 2 checks. PT/OT/Speech. Continue Lyrica 100 mg p.o. twice daily for painful paresthesias. Patient takes gabapentin at home which according to her does not work well for with neuropathic pain. Continue medical management per primary team. Plan discussed in detail with the patient, nursing staff and the primary attending Dr. Garber. Thank you for the consult. Job ID: [id number] [facility] HOSPITALOliver
[2020-07-02] MEDS: Multivitamins, Adult 10 ML, Folic Acid 1 MG, Thiamine HCl 100 MG in Dextrose 5 %-0.45 %... IV SCH (15:54)
[2020-07-02] MEDS ORDERED: Lorazepam 1 MG TAB PO PRN (17:15)
[2020-07-02] MEDS ORDERED: cloNIDine 0.1 MG TAB PO PRN (17:47)
[2020-07-02] MEDS ORDERED: Famotidine 20 MG TAB PO SCH (21:00)
[2020-07-02] MEDS: cefTRIAXone\\ROCEPHIN 1 GM in Sodium Chloride 0.9% 100 ML IVPB SCH (21:58)
[2020-07-02] MEDS: Zolpidem Tartrate 5 MG TAB PO PRN (22:03)
[2020-07-03] MEDS: Morphine 4 MG/ML VIAL SLOW IVP PRN ×3 (01:20→15:54)
[2020-07-03 03:33] LABS: #Lymphocytes 1.2 thou/uL (1.20-3.40); #Monocytes 0.8 thou/uL (0.11-0.59); %Basophils 0.1 % (0.0-1.0); %Eosinophils 0.1 % (0.0-10.0); %Lymphocytes 7.7 % (21.0-51.0); %Monocytes 5.2 % (0.0-10.0); %Neutrophils 86.9 % (42.0-75.0); Hemoglobin 10.6 g/dL (12.0-16.0); Mean Corpuscular HGB CONC 32.8 g/dL (32.0-36.0); Mean Corpuscular Hemoglobin 39.2 pg (27.0-31.0); Mean Platelet Volume 8.2 fL (7.4-10.4); Platelet Count 378 thou/uL (130-400); RBC Distribution Width 14.7 % (11.5-14.5); Red Blood Cell (RBC) Count 2.71 mill/uL (4.20-5.40); White Blood Cell (WBC) Count 16.2 thou/uL (4.8-10.8)
[2020-07-03] MEDS: ADMIXTURE FEE IVPB SCH (03:39)
[2020-07-03] MEDS: OCTAGAM IVPB SCH (03:39)
[2020-07-03 03:52] LABS: ALT (SGPT) 61 U/L (8-55); AST (SGOT) 116 U/L (5-34); Albumin 3.4 g/dL (3.5-5.0); Alkaline Phosphatase 165 U/L (40-110); Anion Gap 16 mmol/L (10-20); BUN (Urea Nitrogen) 7 mg/dL (7.0-18.7); Bilirubin, Total 0.7 mg/dL (0.2-1.2); CK (CPK) 35 U/L (29-168); Calc. Creatinine Clearance 200 mL/min (70-130); Calcium 8.8 mg/dL (7.8-10.44); Carbon Dioxide 20 mmol/L (22-29); Chloride 104 mmol/L (98-107); Estimated GFR-MDRD Greater than 90; Glucose 163 mg/dL (70-105); Lipase Less than 4 U/L (8-78); Magnesium 2.1 mg/dL (1.6-2.6); Phosphorus 3.5 mg/dL (2.3-4.7); Protein, Total 7.4 g/dL (6.0-8.3); Sodium 136 mmol/L (136-145)
[2020-07-03] MEDS ORDERED: Diazepam 5 MG TAB PO PRN (04:00)
[2020-07-03] MEDS ORDERED: Cyanocobalamin 1000 MCG/ML VIAL IM SCH (08:45)
[2020-07-03] MEDS: Folic Acid 1 MG TAB PO SCH (09:29)
[2020-07-03] MEDS: Amlodipine 10 MG TAB PO SCH (09:30)
[2020-07-03] MEDS: Cyanocobalamin (Vitamin B-12) 1,000 MCG TAB PO SCH (09:30)
[2020-07-03] MEDS: Multivitamin W/ Minerals 1 TAB PO SCH (09:30)
[2020-07-03] MEDS: Thiamine 100 MG TAB PO SCH (09:30)
[2020-07-03] MEDS: Metoprolol Tartrate 25 MG TAB PO SCH ×2 (09:30→20:18)
[2020-07-03] MEDS: Enoxaparin Sodium 40 MG/0.4 ML SYRINGE SC SCH (09:30)
[2020-07-03] MEDS: Magnesium Oxide 400 MG TAB PO SCH (09:30)
[2020-07-03] MEDS: pyridOXINE 50 MG (B6) TAB PO SCH (09:31)
[2020-07-03] MEDS: Pregabalin 50 MG CAP PO SCH ×3 (09:31→20:17)
[2020-07-03] MEDS: HYDROcodone/Acetaminophen 5/325 mg Tablet PO PRN ×3 (12:00→22:24)
[2020-07-03] MEDS: Multivitamins, Adult 10 ML, Folic Acid 1 MG, Thiamine HCl 100 MG in Dextrose 5 %-0.45 %... IV SCH (12:03)
--- NOTE | 2020-07-03 13:15 | PDOC.NEUPN ---
- Subjective Encounter Date: 07/03/20 Subjective: Patient continues to have painful paresthesias of the lower extremities - Objective Vital Signs & Weight: Vital Signs (12 hours) Temp Pulse Resp BP Pulse Ox 07/03/20 11:31 97.4 F L 07/03/20 09:30 107 H 162/114 H 07/03/20 07:24 97.1 F L 07/03/20 07:20 107 H 17 96 07/03/20 01:25 97 16 95 Weight Weight 200 lb Most Recent Monitor Data Heart Rate from ECG 89 NIBP 138/96 NIBP BP-Mean 110 Respiration from ECG 14 SpO2 95 I&O: 07/02/20 07/03/20 07/04/20 06:59 06:59 06:59 Intake Total 1225 Output Total 1000 Balance 225 Result Diagrams: 07/03/20 02:59 07/03/20 02:59 Radiology Reviewed by me: Yes EKG Reviewed by me: Yes ROS - Review of Systems Constitutional: denies: fever, chills, sweats, weakness, malaise, other Eyes: denies: pain, vision change, conjunctivae inflammation, eyelid inflammation, redness, other ENT: denies: ear pain, ear discharge, nose pain, nose discharge, nose congestion, mouth pain, mouth swelling, throat pain, throat swelling, other Respiratory: denies: cough, dry, shortness of breath, hemoptysis, SOB with excertion, pleuritic pain, sputum, wheezing, other Gastrointestinal: denies: nausea, vomiting, abdominal pain, diarrhea, constipation, melena, hematochezia, other Genitourinary: denies: dysuria, frequency, incontinence, hematuria, retention, other Musculoskeletal: reports: leg pain. denies: neck pain, shoulder pain, arm pain, back pain, hand pain, foot pain, other Skin: denies: rash, lesions, jonathan, bruising, other Neurological: reports: weakness, numbness - Medication Medications: Active Medications Generic Name Dose Route Start Last Admin Trade Name Freq PRN Reason Stop Dose Admin Hydrocodone Bitart/Acetaminophen 1 tab 07/02/20 01:02 07/02/20 10:07 Hydrocodone/Acetaminophen 5/325 Mg Tablet PO 1 tab Q4H PRN Administration Moderate Pain (4-6) Hydrocodone Bitart/Acetaminophen 2 tab 07/02/20 01:02 07/03/20 12:00 Hydrocodone/Acetaminophen 5/325 Mg Tablet PO 2 tab Q4H PRN Administration Severe Pain (7-10) Albuterol/Ipratropium 3 ml 07/02/20 13:00 07/03/20 07:20 Ipratropium/Albuterol Sulfate 3 Ml Neb NEB 3 ml [id number] PAULIE Administration Amlodipine Besylate 10 mg 07/02/20 09:00 07/03/20 09:30 Amlodipine 10 Mg Tab PO 10 mg DAILY PAULIE Administration Cyanocobalamin 1,000 mcg 07/03/20 09:00 07/03/20 09:30 Cyanocobalamin (Vitamin B-12) 1,000 Mcg Tab PO 1,000 mcg DAILY PAULIE Administration Enoxaparin Sodium 40 mg 07/02/20 09:00 07/03/20 09:30 Enoxaparin Sodium 40 Mg/0.4 Ml Syringe SC 40 mg 0900 PAULIE Administration Folic Acid 1 mg 07/02/20 09:00 07/03/20 09:29 Folic Acid 1 Mg Tab PO 1 mg DAILY PAULIE Administration Ceftriaxone Sodium 1 gm/ 100 mls @ 200 mls/hr 07/02/20 22:00 07/02/20 21:58 Sodium Chloride IVPB 100 mls Q24HR PAULIE Administration Immune Globulin 30 gm/ 300 mls @ 0 mls/hr 07/02/20 03:00 07/03/20 03:39 Miscellaneous Medication IVPB 07/06/20 03:01 300 mls Q24HR PAULIE Administration As Directed Multivitamins 10 ml/ Folic 1,011.2 mls @ 75 mls/hr 07/02/20 12:00 07/03/20 12:03 Acid 1 mg/ Thiamine HCl 100 mg IV 1,011.2 mls / Dextrose/Sodium Chloride Q24HR PAULIE Administration Iron/Minerals/Multivitamins 1 tab 07/02/20 09:00 07/03/20 09:30 Multivitamin W/ Minerals 1 Tab PO 1 tab DAILY PAULIE Administration Magnesium Oxide 400 mg 07/03/20 09:00 07/03/20 09:30 Magnesium Oxide 400 Mg Tab PO 400 mg DAILY PAULIE Administration Metoprolol Tartrate 25 mg 07/02/20 09:00 07/03/20 09:30 Metoprolol Tartrate 25 Mg Tab PO 25 mg BID PAULIE Administration Morphine Sulfate 4 mg 07/02/20 06:53 07/03/20 09:32 Morphine 4 Mg/Ml Vial SLOW IVP 4 mg Q4H PRN Administration Pain Pantoprazole Sodium 40 mg 07/03/20 09:00 07/03/20 09:30 Pantoprazole 40 Mg Tab PO 40 mg DAILY PAULIE Administration Pregabalin 50 mg 07/02/20 09:00 07/03/20 09:31 Pregabalin 50 Mg Cap PO 50 mg TID PAULIE Administration Pyridoxine HCl 50 mg 07/03/20 09:00 07/03/20 09:31 Pyridoxine 50 Mg (B6) Tab PO 50 mg DAILY PAULIE Administration Sodium Chloride 10 ml 07/02/20 09:00 07/03/20 09:31 Flush - Normal Saline 10 Ml Syringe IVF 10 ml Q12HR PAULIE Administration Thiamine HCl 100 mg 07/03/20 09:00 07/03/20 09:30 Thiamine 100 Mg Tab PO 100 mg DAILY PAULIE Administration Zolpidem Tartrate 5 mg 07/02/20 17:44 07/02/20 22:03 Zolpidem Tartrate 5 Mg Tab PO 5 mg HSPRN PRN Administration Insomnia - Exam General Appearance: awake alert Eye: PERRL ENT: normocephalic atraumatic Neck: supple Respiratory: CTAB Cardiovascular: RRR Gastrointestinal: soft Extremities: no cyanosis Skin: normal turgor Neurological: no focal deficits Musculoskeletal: no muscle wasting PSYCH: A&O x 3 Results - Labs Result Diagrams: 07/03/20 02:59 07/03/20 02:59 Lab results: WBC 16.2 thou/uL (4.8-10.8) H 07/03/20 02:59 Hgb 10.6 g/dL (12.0-16.0) L 07/03/20 02:59 Hct 32.5 % (36.0-47.0) L 07/03/20 02:59 MCV 120.0 fL (78.0-98.0) H 07/03/20 02:59 Plt Count 378 thou/uL (130-400) 07/03/20 02:59 Neutrophils % 86.9 % (42.0-75.0) H 07/03/20 02:59 Band Neuts % (Manual) 6 % (5-11) 07/02/20 06:15 Sodium 136 mmol/L (136-145) 07/03/20 02:59 Potassium 4.0 mmol/L (3.5-5.1) 07/03/20 02:59 Chloride 104 mmol/L (98-107) 07/03/20 02:59 Carbon Dioxide 20 mmol/L (22-29) L 07/03/20 02:59 BUN 7 mg/dL (7.0-18.7) 07/03/20 02:59 Creatinine 0.60 mg/dL (0.6-1.1) 07/03/20 02:59 Glucose 163 mg/dL (70-105) H 07/03/20 02:59 Calcium 8.8 mg/dL (7.8-10.44) 07/03/20 02:59 Total Bilirubin 0.7 mg/dL (0.2-1.2) 07/03/20 02:59 AST 116 U/L (5-34) H 07/03/20 02:59 ALT 61 U/L (8-55) H 07/03/20 02:59 Alkaline Phosphatase 165 U/L (40-110) H 07/03/20 02:59 Creatine Kinase 35 U/L (29-168) 07/03/20 02:59 Serum Total Protein 7.4 g/dL (6.0-8.3) 07/03/20 02:59 Albumin 3.4 g/dL (3.5-5.0) L 07/03/20 02:59 Lipase Less than 4 U/L (8-78) L 07/03/20 02:59 Urine Ketones Negative mg/dL (Negative) 07/01/20 18:12 Urine Blood 3+ (Negative) A 07/01/20 18:12 Urine Nitrite Negative (Negative) 07/01/20 18:12 Ur Leukocyte Esterase 500 Amber/uL (Negative) A 07/01/20 18:12 Urine RBC 0-3 HPF (0-3) 07/01/20 18:12 Urine WBC 11-20 HPF (0-3) A 07/01/20 18:12 Ur Squamous Epith Cells 0-3 HPF (0-3) 07/01/20 18:12 Urine Bacteria 1+ HPF (None Seen) A 07/01/20 18:12 PN A/P (1) Leukocytosis Code(s): D72.829 - ELEVATED WHITE BLOOD CELL COUNT, UNSPECIFIED Status: Acute (2) UTI (urinary tract infection) Status: Acute Qualifiers: Urinary tract infection type: acute cystitis Hematuria presence: without hematuria Qualified Code(s): N30.00 - Acute cystitis without hematuria (3) Weakness Code(s): R53.1 - WEAKNESS Status: Acute (4) Alcohol abuse Code(s): F10.10 - ALCOHOL ABUSE, UNCOMPLICATED Status: Chronic (5) HTN (hypertension) Code(s): I10 - ESSENTIAL (PRIMARY) HYPERTENSION Status: Chronic Qualifiers: Hypertension type: essential hypertension Qualified Code(s): I10 - Essential (primary) hypertension - Plan Daily Plan: PT/OT, speech therapy, DVT proph w/SCDs [place] 10-year-old female with medical history significant for Guillain-Chicas syndrome presented with painful ascending paresthesias with weakness in the lower extremities associated with difficulty in walking. Most likely Guillain- Chicas exacerbation in the setting of urinary tract infection. Continue IVIG 0.4 g/kg every 24 hours for 3 days. Today is day #2. Neurochecks every 2 hours. Bedside spirometry to check negative inspiratory pressure per shift Continue home medications. Pain control of painful paresthesias with Lyrica PT/OT CIWA protocol Continue medical management per primary team. Plan discussed in detail with the patient , mother and the nursing staff.
[2020-07-03] MEDS ORDERED: cloNIDine 0.1 MG TAB PO PRN (13:19)
[2020-07-03] MEDS: cefTRIAXone\\ROCEPHIN 1 GM in Sodium Chloride 0.9% 100 ML IVPB SCH (20:17)
[2020-07-03] MEDS: Zolpidem Tartrate 5 MG TAB PO PRN (22:23)
--- NOTE | 2020-07-03 23:47 | PDOC.HOSPP ---
- Subjective Encounter Date: 07/03/20 Encounter Time: 15:00 Subjective: Patient seen and examined for GB syndrome exacerbation. Bilateral lower extremity paresthesias improving. No new focal deficit. - Objective Vital Signs & Weight: Vital Signs (12 hours) Temp Pulse Pulse Pulse Resp BP BP 07/03/20 23:46 97.2 F L 07/03/20 20:00 07/03/20 19:32 97.2 F L 07/03/20 18:39 119 H 17 07/03/20 15:54 107 H 111 H 155/110 H 158/107 H 07/03/20 13:50 87 14 Pulse Ox Pulse Ox Pulse Ox 07/03/20 23:46 07/03/20 20:00 99 07/03/20 19:32 07/03/20 18:39 95 07/03/20 15:54 96 95 07/03/20 13:50 97 Weight Weight 200 lb Most Recent Monitor Data Heart Rate from ECG 108 NIBP 159/114 NIBP BP-Mean 129 Respiration from ECG 19 SpO2 90 I&O: 07/02/20 07/03/20 07/04/20 06:59 06:59 06:59 Intake Total 2775 Output Total 1000 Balance 1775 Result Diagrams: 07/03/20 02:59 07/03/20 02:59 EKG Reviewed by me: Yes (Sinus rhythm on telemetry) Hospitalist ROS - Review of Systems Respiratory: denies: cough, dry, shortness of breath, hemoptysis, SOB with excertion, pleuritic pain, sputum, wheezing, other Cardiovascular: denies: chest pain, palpitations, orthopnea, paroxysmal noc. dyspnea, edema, light headedness, other - Medication Medications: Active Medications Generic Name Dose Route Start Last Admin Trade Name Freq PRN Reason Stop Dose Admin Hydrocodone Bitart/Acetaminophen 1 tab 07/02/20 01:02 07/02/20 10:07 Hydrocodone/Acetaminophen 5/325 Mg Tablet PO 1 tab Q4H PRN Administration Moderate Pain (4-6) Hydrocodone Bitart/Acetaminophen 2 tab 07/02/20 01:02 07/03/20 22:24 Hydrocodone/Acetaminophen 5/325 Mg Tablet PO 2 tab Q4H PRN Administration Severe Pain (7-10) Albuterol/Ipratropium 3 ml 07/02/20 13:00 07/03/20 18:39 Ipratropium/Albuterol Sulfate 3 Ml Neb NEB 3 ml [id number] PAULIE Administration Amlodipine Besylate 10 mg 07/02/20 09:00 07/03/20 09:30 Amlodipine 10 Mg Tab PO 10 mg DAILY PAULIE Administration Cyanocobalamin 1,000 mcg 07/03/20 09:00 07/03/20 09:30 Cyanocobalamin (Vitamin B-12) 1,000 Mcg Tab PO 1,000 mcg DAILY PAULIE Administration Enoxaparin Sodium 40 mg 07/02/20 09:00 07/03/20 09:30 Enoxaparin Sodium 40 Mg/0.4 Ml Syringe SC 40 mg 0900 PAULIE Administration Folic Acid 1 mg 07/02/20 09:00 07/03/20 09:29 Folic Acid 1 Mg Tab PO 1 mg DAILY PAULIE Administration Ceftriaxone Sodium 1 gm/ 100 mls @ 200 mls/hr 07/02/20 22:00 07/03/20 20:17 Sodium Chloride IVPB 100 mls Q24HR PAULIE Administration Immune Globulin 30 gm/ 300 mls @ 0 mls/hr 07/02/20 03:00 07/03/20 03:39 Miscellaneous Medication IVPB 07/06/20 03:01 300 mls Q24HR PAULIE Administration As Directed Multivitamins 10 ml/ Folic 1,011.2 mls @ 75 mls/hr 07/02/20 12:00 07/03/20 12:03 Acid 1 mg/ Thiamine HCl 100 mg IV 1,011.2 mls / Dextrose/Sodium Chloride Q24HR PAULIE Administration Iron/Minerals/Multivitamins 1 tab 07/02/20 09:00 07/03/20 09:30 Multivitamin W/ Minerals 1 Tab PO 1 tab DAILY PAULIE Administration Magnesium Oxide 400 mg 07/03/20 09:00 07/03/20 09:30 Magnesium Oxide 400 Mg Tab PO 400 mg DAILY PAULIE Administration Metoprolol Tartrate 25 mg 07/02/20 09:00 07/03/20 20:18 Metoprolol Tartrate 25 Mg Tab PO 25 mg BID PAULIE Administration Morphine Sulfate 4 mg 07/02/20 06:53 07/03/20 15:54 Morphine 4 Mg/Ml Vial SLOW IVP 4 mg Q4H PRN Administration Pain Pantoprazole Sodium 40 mg 07/03/20 09:00 07/03/20 09:30 Pantoprazole 40 Mg Tab PO 40 mg DAILY PAULIE Administration Pregabalin 200 mg 07/03/20 21:00 07/03/20 20:17 Pregabalin 50 Mg Cap PO 200 mg BID PAULIE Administration Pyridoxine HCl 50 mg 07/03/20 09:00 07/03/20 09:31 Pyridoxine 50 Mg (B6) Tab PO 50 mg DAILY PAULIE Administration Sodium Chloride 10 ml 07/02/20 09:00 07/03/20 20:18 Flush - Normal Saline 10 Ml Syringe IVF 10 ml Q12HR PAULIE Administration Thiamine HCl 100 mg 07/03/20 09:00 07/03/20 09:30 Thiamine 100 Mg Tab PO 100 mg DAILY PAULIE Administration Zolpidem Tartrate 5 mg 07/02/20 17:44 07/03/20 22:23 Zolpidem Tartrate 5 Mg Tab PO 5 mg HSPRN PRN Administration Insomnia - Exam General Appearance: NAD Neck: supple, no JVD Heart: no gallops, no rubs Respiratory: no wheezes, no ronchi Gastrointestinal: non-tender, normal bowel sounds Extremities: no cyanosis Hosp A/P - Plan DVT proph w/lovenox, DVT proph w/SCDs Guillain-Chicas syndrome exacerbation Bilateral lower extremity paresthesias due to above UTI Chronic alcoholism Hypertension Obesity with a BMI 31.3 Chronic anemia suspected due to nutritional deficiency Plan: Continue IVIG per neurology. Continue ceftriaxone for UTI. Await urine cultures. Vitamin B12 in the low normal range. We will give 1 dose of intramuscular vitamin B12. DVT prophylaxis with Lovenox. Continue beta- blockers and other medications as above. Change Lyrica to home dose per neurology. Continue to closely monitor. Endo dictation thank
[2020-07-04] MEDS: ADMIXTURE FEE IVPB SCH (03:21)
[2020-07-04] MEDS: OCTAGAM IVPB SCH (03:21)
[2020-07-04 03:45] LABS: #Basophils 0.1 thou/uL (0.0-0.2); #Lymphocytes 2.8 thou/uL (1.20-3.40); #Monocytes 0.9 thou/uL (0.11-0.59); #Neutrophils 12.5 thou/uL (1.40-6.50); %Basophils 0.4 % (0.0-1.0); %Eosinophils 0.2 % (0.0-10.0); %Lymphocytes 17.2 % (21.0-51.0); %Monocytes 5.7 % (0.0-10.0); %Neutrophils 76.5 % (42.0-75.0); Hemoglobin 10.6 g/dL (12.0-16.0); Mean Corpuscular Hemoglobin 38.5 pg (27.0-31.0); Mean Platelet Volume 7.8 fL (7.4-10.4); Platelet Count 335 thou/uL (130-400); RBC Distribution Width 14.8 % (11.5-14.5); Red Blood Cell (RBC) Count 2.76 mill/uL (4.20-5.40); White Blood Cell (WBC) Count 16.4 thou/uL (4.8-10.8)
[2020-07-04] MEDS: HYDROcodone/Acetaminophen 5/325 mg Tablet PO PRN ×2 (03:56→08:59)
[2020-07-04 04:10] LABS: ALT (SGPT) 54 U/L (8-55); AST (SGOT) 112 U/L (5-34); Albumin 3.3 g/dL (3.5-5.0); Alkaline Phosphatase 150 U/L (40-110); Anion Gap 16 mmol/L (10-20); BUN (Urea Nitrogen) 8 mg/dL (7.0-18.7); Bilirubin, Total 0.6 mg/dL (0.2-1.2); Calc. Creatinine Clearance 179 mL/min (70-130); Calcium 8.5 mg/dL (7.8-10.44); Carbon Dioxide 22 mmol/L (22-29); Chloride 101 mmol/L (98-107); Estimated GFR-MDRD Greater than 90; Globulin 4.2 g/dL (2.4-3.5); Glucose 90 mg/dL (70-105); Potassium 3.7 mmol/L (3.5-5.1); Protein, Total 7.5 g/dL (6.0-8.3); Sodium 135 mmol/L (136-145)
[2020-07-04] MEDS: Folic Acid 1 MG TAB PO SCH (08:58)
[2020-07-04] MEDS: Amlodipine 10 MG TAB PO SCH (08:58)
[2020-07-04] MEDS: Magnesium Oxide 400 MG TAB PO SCH (08:59)
[2020-07-04] MEDS: Thiamine 100 MG TAB PO SCH (08:59)
[2020-07-04] MEDS: Cyanocobalamin (Vitamin B-12) 1,000 MCG TAB PO SCH (08:59)
[2020-07-04] MEDS: Multivitamin W/ Minerals 1 TAB PO SCH (08:59)
[2020-07-04] MEDS: Metoprolol Tartrate 25 MG TAB PO SCH (08:59)
[2020-07-04] MEDS: Enoxaparin Sodium 40 MG/0.4 ML SYRINGE SC SCH (09:00)
[2020-07-04] MEDS: Pregabalin 50 MG CAP PO SCH (11:28)
[2020-07-04] MEDS: Morphine 4 MG/ML VIAL SLOW IVP PRN (11:28)
[2020-07-04] MEDS: pyridOXINE 50 MG (B6) TAB PO SCH (12:06)
[2020-07-04 12:53] VITALS: BP 147/98; TEMP 99.1
--- NOTE | 2020-07-04 14:08 | PDOC.NEUPN ---
- Subjective Encounter Date: 07/04/20 Subjective: Patient reports improvement in the lower extremity painful paresthesias. Mother at bedside - Objective Vital Signs & Weight: Vital Signs (12 hours) Temp Pulse Resp BP BP Pulse Ox 07/04/20 12:35 99.1 F 110 H 18 147/98 H 93 L 07/04/20 12:04 99.4 F 07/04/20 09:55 127/83 07/04/20 08:58 124 H 07/04/20 07:22 98.4 F 07/04/20 06:37 108 H 16 97 07/04/20 03:46 97.8 F Weight Weight 200 lb Most Recent Monitor Data Heart Rate from ECG 128 NIBP 127/83 NIBP BP-Mean 97 Respiration from ECG 31 SpO2 86 I&O: 07/03/20 07/04/20 07/05/20 06:59 06:59 05:59 Intake Total 4150 Output Total 1000 Balance 3150 Result Diagrams: 07/04/20 03:17 07/04/20 03:17 Radiology Reviewed by me: Yes EKG Reviewed by me: Yes ROS - Review of Systems Constitutional: denies: fever, chills, sweats, weakness, malaise, other Eyes: denies: pain, vision change, conjunctivae inflammation, eyelid inflammation, redness, other ENT: denies: ear pain, ear discharge, nose pain, nose discharge, nose congestion, mouth pain, mouth swelling, throat pain, throat swelling, other Respiratory: denies: cough, dry, shortness of breath, hemoptysis, SOB with excertion, pleuritic pain, sputum, wheezing, other Gastrointestinal: denies: nausea, vomiting, abdominal pain, diarrhea, constipation, melena, hematochezia, other Genitourinary: denies: dysuria, frequency, incontinence, hematuria, retention, other Musculoskeletal: denies: neck pain, shoulder pain, arm pain, back pain, hand pain, leg pain, foot pain, other All Systems: All other systems reviewed; all pertinent +/- noted in HPI/Subj - Medication Medications: Active Medications Generic Name Dose Route Start Last Admin Trade Name Freq PRN Reason Stop Dose Admin Hydrocodone Bitart/Acetaminophen 1 tab 07/02/20 01:02 07/02/20 10:07 Hydrocodone/Acetaminophen 5/325 Mg Tablet PO 1 tab Q4H PRN Administration Moderate Pain (4-6) Hydrocodone Bitart/Acetaminophen 2 tab 07/02/20 01:02 07/04/20 08:59 Hydrocodone/Acetaminophen 5/325 Mg Tablet PO 2 tab Q4H PRN Administration Severe Pain (7-10) Albuterol/Ipratropium 3 ml 07/02/20 13:00 07/04/20 13:46 Ipratropium/Albuterol Sulfate 3 Ml Neb NEB Not Given [id number] PAULIE Amlodipine Besylate 10 mg 07/02/20 09:00 07/04/20 08:58 Amlodipine 10 Mg Tab PO 10 mg DAILY PAULIE Administration Cyanocobalamin 1,000 mcg 07/03/20 09:00 07/04/20 08:59 Cyanocobalamin (Vitamin B-12) 1,000 Mcg Tab PO 1,000 mcg DAILY PAULIE Administration Enoxaparin Sodium 40 mg 07/02/20 09:00 07/04/20 09:00 Enoxaparin Sodium 40 Mg/0.4 Ml Syringe SC 40 mg 0900 PAULIE Administration Folic Acid 1 mg 07/02/20 09:00 07/04/20 08:58 Folic Acid 1 Mg Tab PO 1 mg DAILY PAULIE Administration Ceftriaxone Sodium 1 gm/ 100 mls @ 200 mls/hr 07/02/20 22:00 07/03/20 20:17 Sodium Chloride IVPB 100 mls Q24HR PAULIE Administration Immune Globulin 30 gm/ 300 mls @ 0 mls/hr 07/02/20 03:00 07/04/20 03:21 Miscellaneous Medication IVPB 07/06/20 03:01 300 mls Q24HR PAULIE Administration As Directed Multivitamins 10 ml/ Folic 1,011.2 mls @ 75 mls/hr 07/02/20 12:00 07/03/20 12:03 Acid 1 mg/ Thiamine HCl 100 mg IV 1,011.2 mls / Dextrose/Sodium Chloride Q24HR PAULIE Administration Iron/Minerals/Multivitamins 1 tab 07/02/20 09:00 07/04/20 08:59 Multivitamin W/ Minerals 1 Tab PO 1 tab DAILY PAULIE Administration Magnesium Oxide 400 mg 07/03/20 09:00 07/04/20 08:59 Magnesium Oxide 400 Mg Tab PO 400 mg DAILY PAULIE Administration Metoprolol Tartrate 25 mg 07/02/20 09:00 07/04/20 08:59 Metoprolol Tartrate 25 Mg Tab PO 25 mg BID PAULIE Administration Morphine Sulfate 4 mg 07/02/20 06:53 07/04/20 11:28 Morphine 4 Mg/Ml Vial SLOW IVP 4 mg Q4H PRN Administration Pain Pantoprazole Sodium 40 mg 07/03/20 09:00 07/04/20 08:59 Pantoprazole 40 Mg Tab PO 40 mg DAILY PAULIE Administration Pregabalin 200 mg 07/03/20 21:00 07/04/20 11:28 Pregabalin 50 Mg Cap PO 200 mg BID PAULIE Administration Pyridoxine HCl 50 mg 07/03/20 09:00 07/04/20 12:06 Pyridoxine 50 Mg (B6) Tab PO Not Given DAILY PAULIE Sodium Chloride 10 ml 07/02/20 09:00 07/04/20 09:00 Flush - Normal Saline 10 Ml Syringe IVF 10 ml Q12HR PAULIE Administration Thiamine HCl 100 mg 07/03/20 09:00 07/04/20 08:59 Thiamine 100 Mg Tab PO 100 mg DAILY PAULIE Administration Zolpidem Tartrate 5 mg 07/02/20 17:44 07/03/20 22:23 Zolpidem Tartrate 5 Mg Tab PO 5 mg HSPRN PRN Administration Insomnia - Exam General Appearance: ill appearing Eye: PERRL ENT: normocephalic atraumatic Neck: supple Respiratory: CTAB Cardiovascular: RRR Gastrointestinal: soft Extremities: no cyanosis Skin: normal turgor Neurological: no new deficit Musculoskeletal: normal tone, normal strength, no muscle wasting PSYCH: normal affect, normal behavior, A&O x 3, oriented to person, oriented to place, oriented to time Results - Labs Result Diagrams: 07/04/20 03:17 07/04/20 03:17 Lab results: WBC 16.4 thou/uL (4.8-10.8) H 07/04/20 03:17 Hgb 10.6 g/dL (12.0-16.0) L 07/04/20 03:17 Hct 32.2 % (36.0-47.0) L 07/04/20 03:17 MCV 117.0 fL (78.0-98.0) H 07/04/20 03:17 Plt Count 335 thou/uL (130-400) 07/04/20 03:17 Neutrophils % 76.5 % (42.0-75.0) H 07/04/20 03:17 Band Neuts % (Manual) 6 % (5-11) 07/02/20 06:15 Sodium 135 mmol/L (136-145) L 07/04/20 03:17 Potassium 3.7 mmol/L (3.5-5.1) 07/04/20 03:17 Chloride 101 mmol/L (98-107) 07/04/20 03:17 Carbon Dioxide 22 mmol/L (22-29) 07/04/20 03:17 BUN 8 mg/dL (7.0-18.7) 07/04/20 03:17 Creatinine 0.67 mg/dL (0.6-1.1) 07/04/20 03:17 Glucose 90 mg/dL (70-105) 07/04/20 03:17 Calcium 8.5 mg/dL (7.8-10.44) 07/04/20 03:17 Total Bilirubin 0.6 mg/dL (0.2-1.2) 07/04/20 03:17 AST 112 U/L (5-34) H 07/04/20 03:17 ALT 54 U/L (8-55) 07/04/20 03:17 Alkaline Phosphatase 150 U/L (40-110) H 07/04/20 03:17 Creatine Kinase 35 U/L (29-168) 07/03/20 02:59 Serum Total Protein 7.5 g/dL (6.0-8.3) 07/04/20 03:17 Albumin 3.3 g/dL (3.5-5.0) L 07/04/20 03:17 Lipase Less than 4 U/L (8-78) L 07/03/20 02:59 Urine Ketones Negative mg/dL (Negative) 07/01/20 18:12 Urine Blood 3+ (Negative) A 07/01/20 18:12 Urine Nitrite Negative (Negative) 07/01/20 18:12 Ur Leukocyte Esterase 500 Amber/uL (Negative) A 07/01/20 18:12 Urine RBC 0-3 HPF (0-3) 07/01/20 18:12 Urine WBC 11-20 HPF (0-3) A 07/01/20 18:12 Ur Squamous Epith Cells 0-3 HPF (0-3) 07/01/20 18:12 Urine Bacteria 1+ HPF (None Seen) A 07/01/20 18:12 - EKG Interpretation EKG: Normal sinus rhythm PN A/P (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 Status: Acute (2) Leukocytosis Code(s): D72.829 - ELEVATED WHITE BLOOD CELL COUNT, UNSPECIFIED Status: Acute (3) UTI (urinary tract infection) Status: Acute Qualifiers: Urinary tract infection type: acute cystitis Hematuria presence: without hematuria Qualified Code(s): N30.00 - Acute cystitis without hematuria (4) Weakness Code(s): R53.1 - WEAKNESS Status: Acute (5) Alcohol abuse Code(s): F10.10 - ALCOHOL ABUSE, UNCOMPLICATED Status: Chronic (6) HTN (hypertension) Code(s): I10 - ESSENTIAL (PRIMARY) HYPERTENSION Status: Chronic Qualifiers: Hypertension type: essential hypertension Qualified Code(s): I10 - Essential (primary) hypertension - Plan Daily Plan: plan discussed w/ family, PT/OT, speech therapy, DVT proph w/SCDs 30-year-old female with medical history significant for Guillain-Chicas syndrome presented with painful ascending paresthesias with weakness in the lower extremities associated with difficulty in walking. Guillain-Chicas exacerbation in the setting of urinary tract infection. Today she feels much better and the painful paresthesias have improved and she did agree denies any weakness in the lower extremities. She also denies any problem with t urination or shortness of breath. Continue IVIG 0.4 g/kg every 24 hours for 3 days. Today is day #3. Neurochecks every 2 hours. Bedside spirometry to check negative inspiratory pressure per shift Continue home medications. Pain control of painful paresthesias with Lyrica PT/OT CIWA protocol Patient counseled about alcohol abuse Continue medical management per primary team. Stable for discharge from neurology perspective after the last dose of IVIG if cleared by PT. Plan discussed in detail with the patient , mother and the nursing staff.
[2020-07-04] MEDS: Multivitamins, Adult 10 ML, Folic Acid 1 MG, Thiamine HCl 100 MG in Dextrose 5 %-0.45 %... IV SCH (14:18)
--- NOTE | 2020-07-04 17:00 | DIS ---
DATE OF ADMISSION: 07/01/2020 DATE OF DISCHARGE: 07/04/2020 DISCHARGE DISPOSITION: Home. PRIMARY DISCHARGE DIAGNOSIS: Exacerbation of GB syndrome with urinary tract infection. SECONDARY DISCHARGE DIAGNOSES: Hypertension, obesity with BMI of 31, alcohol abuse. PROCEDURES DONE DURING HOSPITALIZATION: The patient received IVIG for 3 days. Urine culture grew mixed victorina. Spinal fluid, Gram stain showed no organism. No growth was seen in 3 days. Hemoglobin and hematocrit 10 and 32, platelet count 335, MCV is 117, folic acid 33.4, B12 of 321, albumin 3.4, total bilirubin 0.6, AST 112, ALT 54, alkaline phosphatase 150, BUN 8, creatinine 0.6. COVID-19 PCR was not detected on 07/01/2020. CSF tube #4 was colorless, clarity was clear; tube #1 showed 88 rbc's; tube #2 showed glucose of 59, total protein of 30. DISCHARGE MEDICATIONS: 1. Ambien 10 mg p.o. at bedtime. 2. Motrin p.r.n. for pain. 3. Lopressor 25 mg twice daily. 4. Lyrica 200 mg twice daily. 5. Tizanidine 4 mg p.o. three times daily p.r.n. 6. Folic acid 1 mg p.o. daily. 7. Norvasc 10 mg p.o. daily. 8. Vitamin B12, 1000 mcg p.o. daily. 9. Ciprofloxacin 500 mg p.o. twice daily for 6 days. ALLERGIES: NO KNOWN DRUG ALLERGIES. DISCHARGE PLAN: The patient to follow up with Dr. Almaguer in 10 days; primary care physician, Dr. Joe Daly in 1 week. BRIEF COURSE DURING HOSPITALIZATION: The patient initially came to ER on the with complaints of weakness in lower extremities, pain, and paresthesias. She described it as the same symptoms when she had Guillain-[place] syndrome in 2018. She also had pain in her hands bilaterally. In view of this history and finding of urinary tract infection, the patient was admitted to [facility]. She was given a dose of steroids and was placed on IVIG. She received 3 doses of IVIG. She has had consultation with Dr. Akins for Neurology. Her paresthesias and pain in lower extremities have resolved. Her both hand pain and paresthesias have resolved. She is wanting to go home today. The patient has known history of alcohol abuse and works as a operations program manager. She was counseled against drinking alcohol. She has been cleared by Dr. Akins for discharge today. She is advised to follow up with Dr. Almaguer, her neurologist in 10 days. Please note, I have seen and examined the patient on the day of discharge. Job ID: [id number]
== END 2020-07-04 15:32 | disposition home or self-care (01) | DRG 95 ==
LOC: ERS 17:47 → ERHOLD 23:15 → IMCU/EMU 07-02 00:17 → T4-A 07-04 12:25
PROVIDERS: ADMIT Internal Medicine; ATTEND Internal Medicine
DX: G61.0 Guillain-Barre syndrome (principal); N30.00 Acute cystitis without hematuria; R53.1 Weakness; D72.829 Elevated white blood cell count, unspecified; I10 Essential (primary) hypertension; F10.10 Alcohol abuse, uncomplicated; F41.9 Anxiety disorder, unspecified; Z79.899 Other long term (current) drug therapy; Z90.49 Acquired absence of other specified parts of digestive tract; E66.9 Obesity, unspecified; Z68.31 Body mass index [BMI] 31.0-31.9, adult; Z20.828 Contact with and (suspected) exposure to other viral communicable diseases
CPT/HCPCS: 36415; 62270; 80053; 81003; 81015; 81025; 82550; 82607; 82746; 82945; 83690; 83735; 84100; 84157; 85007; 85025; 85027; 87070; 87086; 87205; 87635; 89051; 94150; 94640; 94760; 96365; 96375; 96376; J0696; J1568; J1650; J2250; J2270; J2405; J2930; J3010; J3411; J3420; J3475; J3490; J7042; J7620; U0003

== ENCOUNTER 2020-10-14 22:46 | Emergency (ER) | payer OTHER, SELFPAY ==
[2020-10-14] MEDS ORDERED: Ketorolac Tromethamine 30 MG/ML VIAL ONE (23:13)
--- NOTE | 2020-10-14 23:20 | RAD ---
3 views of the right ankle: 10/14/2020 COMPARISON: None HISTORY: Injury, trauma, pain FINDINGS: Medial and lateral soft tissue swelling is noted. There is a transverse nondisplaced fractu re at the base of the medial malleolus. No additional fracture or evidence of dislocation is appreciated. IMPRESSION: Transverse fracture at the base of the medial malleolus.
[2020-10-14] MEDS ORDERED: Morphine 4 MG/ML VIAL ONE (23:31)
== END 2020-10-15 00:06 | disposition home or self-care (01) ==
LOC: ERS 22:46
DX: S82.54XA Nondisplaced fracture of medial malleolus of right tibia, initial encounter for closed fracture (principal); I10 Essential (primary) hypertension; Z79.899 Other long term (current) drug therapy; W10.1XXA Fall (on)(from) sidewalk curb, initial encounter
CPT/HCPCS: 27760; 96372; J1885; J2270

== ENCOUNTER 2020-11-04 11:44 | Outpatient (CLI) | payer BC ==
[2020-11-04 14:44] LABS: #Basophils 0.1 10x3/uL (0.0-0.2); #Eosinphils 0.2 10x3/uL (0.0-0.5); #Monocytes 0.6 10x3/uL (0.0-1.1); #Neutrophils 5.6 10x3/uL (1.5-8.4); %Basophils 0.9 % (0.0-2.0); %Eosinophils 1.7 % (0.0-6.0); %Lymphocytes 30.3 % (18.0-47.0); %Monocytes 6.1 % (0.0-10.0); %Neutrophils 60.7 % (40.0-75.0); Mean Corpuscular HGB CONC 31.3 g/dL (32.0-36.0); Mean Corpuscular Hemoglobin 27.3 pg (27.0-33.0); Mean Corpuscular Volume 87.2 fl (81.6-98.3); Platelet Count 328 10x3/uL (150-450); RBC Distribution Width 14.3 % (11.5-14.5); Red Blood Cell (RBC) Count 4.76 10x6/uL (3.90-5.03); White Blood Cell (WBC) Count 9.2 10x3/uL (3.5-10.5)
[2020-11-04 14:51] LABS: BHCG - Serum Negative (NEGATIVE); Pregs Control Background? CLEAR/WHITE (CLR/WHITE); Pregs Control Bar Appear? YES (CONTROL BAR)
[2020-11-05 00:56] LABS: SARS-CoV-2 PCR by NAA Not Detected (NotDetected)
== END 2020-11-04 11:45 | disposition home or self-care (01) ==
LOC: LABBT 11:44
PROVIDERS: ATTEND Orthopaedic Surgery
DX: Z01.818 Encounter for other preprocedural examination (principal); Z20.822 Contact with and (suspected) exposure to COVID-19
CPT/HCPCS: 84703; 85025; 87635; 93005; 93010; U0003; U0005

== ENCOUNTER 2020-11-06 11:07 | Day surgery (SDC) | payer BC ==
[~2020-11-06 11:07] MED LIST: Dexamethasone 20 MG/5 ML VIAL ONE; Lidocaine 1% PF 5 ML VIAL ONE; Ondansetron PF 4 MG/2 ML Vial ONE; PROPOFOL 200 MG/20 ML VIAL ONE
[2020-11-06] MEDS ORDERED: Fentanyl 100 MCG/2 ML VIAL ONE ×3 (11:47→13:55)
[2020-11-06] MEDS ORDERED: Midazolam HCl 2 mg/2 ml Vial ONE (12:10)
[2020-11-06] MEDS ORDERED: Bupivacaine 0.25% HCL 30 ML VIAL ONE (12:24)
[2020-11-06] MEDS ORDERED: Lidocaine 1% w/Epinephrine 1:100K 20 ML VIAL ONE (12:24)
[2020-11-06] MEDS ORDERED: Morphine 4 MG/ML VIAL ONE (14:22)
[2020-11-06] MEDS ORDERED: SUGAMMADEX SODIUM 200 MG/2 ML VIAL ONE (14:32)
[2020-11-06] MEDS ORDERED: Ketorolac Tromethamine 30 MG/ML VIAL ONE (14:32)
[2020-11-06] MEDS ORDERED: HYDROcodone/Acetaminophen 5/325 mg Tablet ONE ×2 (15:11→15:30)
== END 2020-11-06 16:25 | disposition home or self-care (01) ==
LOC: SDC 11:07
PROVIDERS: ATTEND Orthopaedic Surgery
PROC: 0QSG04Z Reposition Right Tibia with Internal Fixation Device, Open Approach (ICD-10-PCS; principal; 2020-11-06)
DX: S82.841A Displaced bimalleolar fracture of right lower leg, initial encounter for closed fracture (principal); F10.11 Alcohol abuse, in remission; G61.0 Guillain-Barre syndrome; Z79.899 Other long term (current) drug therapy; W10.1XXA Fall (on)(from) sidewalk curb, initial encounter
CPT/HCPCS: 76000; C1713; C1769; J0690; J1100; J1885; J2250; J2270; J2405; J2704; J3010; S0020

== ENCOUNTER 2021-10-09 01:44 | Emergency (ER) | payer OTHER, BC ==
[2021-10-09] MEDS ORDERED: Boostrix 0.5 ML (Tdap) VIAL ONE (02:46)
== END 2021-10-09 03:13 ==
LOC: ERS 01:44
DX: S20.219A Contusion of unspecified front wall of thorax, initial encounter (principal); I10 Essential (primary) hypertension; V43.52XA Car driver injured in collision with other type car in traffic accident, initial encounter
CPT/HCPCS: 71045; 90471; 90715; 93005